=== PATIENT | male | born 1965 | race Caucasian/White ===

== ENCOUNTER 2025-01-31 16:32 | Emergency (ER) | payer OTHER, SELFPAY ==
--- NOTE | ~2025-01-31 | CT_ITS ---
CLINICAL HISTORY: mass? left arm weakness CT head without contrast Comparison: None Findings: No intra-axial mass, midline shift, hydrocephalus, or acute hemorrhage. No significant atrophy-like change or white matter disease. The visualized paranasal sinuses and mastoid air cells are normal. The orbits are within normal limits. There is no acute fracture. IMPRESSION: 1. No acute intracranial findings. This document has been electronically signed by: Kateryna Moreland MD on 01/31/2025 20:59:04
--- NOTE | ~2025-01-31 | XR_ITS ---
CLINICAL HISTORY: L shoulder pain on movement 4 view left shoulder Comparison: None Findings: Normal congruency of the glenohumeral joint. AC joint arthrosis with undersurface spurring No fractures or bony erosions. No greater tuberosity cysts. Normal bone mineralization and soft tissues. No radiopaque foreign body. Normal visualized left chest. Impression: 1. No fracture, subluxations or dislocations left shoulder. 2. AC joint arthrosis with undersurface spurring. This document has been electronically signed by: Marlon Calderon MD on 01/31/2025 18:11:52
--- NOTE | ~2025-01-31 | CT_ITS ---
CLINICAL HISTORY: posterior neck pain radating down left arm CT cervical spine without contrast Comparison: None Findings: Normal vertebral body alignment. Multilevel degenerative disc disease. No significant associated central canal narrowing. No acute fractures or dislocations. No acute findings on limited view of the intracranial contents. No cervical fluid collections or masses. Lung apices are clear. IMPRESSION: No acute findings. This document has been electronically signed by: Kateryna Moreland MD on 01/31/2025 20:57:59
[2025-01-31 16:44] VITALS: BP 150/93; PULSE 106; RESP 20; TEMP 37; O2SAT 94; BMI 20.9
--- NOTE | 2025-01-31 16:45 | ED.GENADULT ---
HPI - General Adult General Chief complaint: Upper Respiratory Symptoms Stated complaint: left arm pain Time Seen by Provider: 01/31/25 18:36 Related Data Previous Rx's ?Medication ?Instructions ?Recorded metformin 500 mg tablet 500 mg PO BID #60 tabs 02/01/25 Allergies Allergy/AdvReac Type Severity Reaction Status Date / Time No Known Allergies Allergy Verified 01/31/25 16:49 PMFSH Social History Social History Smoked in Last 30 Days: No Use of substances other than those prescribed or required for medical reasons: No Advance Directives: No Advance Directives Information Provided: No Physical Exam ED Vital Signs: Vital Signs - 24 hr 01/31/25 16:44 01/31/25 18:00 01/31/25 21:19 Temperature 98.6 F 98.3 F Pulse Rate 106 H 105 H Respiratory Rate 20 20 Blood Pressure 150/93 H 160/102 H Pulse Oximetry 94 96 98 Oxygen Delivery Method Room Air Room Air Room Air 01/31/25 21:19 01/31/25 21:23 01/31/25 21:37 Temperature 98.0 F 97.9 F Pulse Rate 87 84 Respiratory Rate 16 12 Blood Pressure 161/102 H 160/97 H 148/102 H Pulse Oximetry 99 98 Oxygen Delivery Method Room Air Room Air 01/31/25 23:02 02/01/25 01:41 Temperature 98.0 F 98.1 F Pulse Rate 88 72 Respiratory Rate 16 19 Blood Pressure 143/90 H 143/73 H Pulse Oximetry 99 99 Oxygen Delivery Method Room Air Room Air BMI result Body Mass Index 20.9 Course Course Course Narrative: This is a Rapid Medical Examination (RME) performed by Herrera Mondragon PA-C in triage. Full HPI, ROS, assessment and treatment plan per primary provider in the Main ED. 01/31/25 1650 VADIM Lopez Hx: 59 yo male here for eval of atraumatic LUE weakness/pain starting at the left shoulder. Pain radiates down LUE into fingertips. Reports paresthesias. No blunt injury or trauma. No neck pain. PE/vitals: FROM intact to left shoulder, pain noted on active abduction. pain noted to left shoulder on extension against resistance. no midline cervical spinous tenderness. exam nonfocal - NIH 0. Plan: imaging Medications Administered Discontinued Medications Generic Name Dose Route Start Last Admin Trade Name Freq PRN Reason Stop Dose Admin Sodium Chloride 1,000 mls @ 999 mls/hr 01/31/25 20:59 01/31/25 23:10 Ns IV 01/31/25 21:59 Infused .Q1H1M STA Infusion Insulin Human Regular 5 unit 01/31/25 21:01 01/31/25 21:10 Insulin Regular, Human 100 Unit/Ml 10 Ml Vial IVPUSH 01/31/25 21:02 5 unit ONCE ONE Administration Medical Decision Making Lab Data 01/31/25 20:32 01/31/25 20:32 Labs: Lab Results 01/31/25 01/31/25 02/01/25 Range/Units 20:32 23:07 01:24 WBC 10.1 (4.8-10.8) X10*3/uL RBC 5.39 (4.60-5.80) X10*6/uL Hgb 16.4 (14.0-18.0) g/dl Hct 45.2 (42.0-52.0) % MCV 83.9 (80.0-98.0) fL MCH 30.4 (27.0-33.0) pg MCHC 36.3 H (31.0-36.0) g/dl RDW 12.0 (11.0-16.0) % Plt Count 202 (160-400) X10*3/uL MPV 11.3 (9.4-12.4) fL Immature Gran % (Auto) 0.3 (0.0-0.4) % Neut % (Auto) 72.7 (45-73) % Lymph % (Auto) 20.9 (20-40) % [place] % (Auto) 5.0 (2-11) % Eos % (Auto) 0.7 (0-4) % Baso % (Auto) 0.4 (0-2) % Lymph # (Auto) 2.1 (1.2-4.9) X10*3/uL [place] # (Auto) 0.5 (0.1-1.2) X10*3/uL Eos # (Auto) 0.1 (0.0-0.4) X10*3/uL Baso # (Auto) 0.0 (0.0-0.2) X10*3/uL Abs Immat Gran (auto) 0.03 (0.00-0.03) X10*3/uL Absolute Neuts (auto) 7.3 (2.0-8.3) x10*3/uL Absolute Nucleated RBC 0.000 (0.0-0.012) X10*3/uL Nucleated RBC % (auto) 0.0 (0.0-0.2) /100WBC Sodium 136 (135-145) mmol/L Potassium 4.1 (3.3-5.1) mmol/L Chloride 102 (96-108) mmol/L Carbon Dioxide 24 (22-29) mmol/L Anion Gap 14 (12-20) BUN 11 (9-16) mg/dL Creatinine 1.20 (0.5-1.4) mg/dL Estim Creat Clear Calc 61.5 Estimated GFR > 60 POC Glucose 156 H (60-115) mg/dL Random Glucose 394 H* (60-115) mg/dL Calcium 9.3 (8.4-10.2) mg/dL Total Bilirubin 0.2 (0.0-1.0) mg/dL AST 24 (5-37) U/L ALT 42 H (0-40) U/L Alkaline Phosphatase 221 H (39-117) U/L Troponin I High Sens 67.5 H 69.5 H (<3.5-35.0) ng/L Total Protein 8.9 H (6.5-8.0) g/dL Albumin 4.0 (3.5-5.0) g/dL Beta-Hydroxybutyrate 0.20 (0.02-0.27) mmol/L Discharge Plan Discharge Clinical Impression: Diabetes Patient Disposition: Home, Self-Care Instructions: Type 2 Diabetes in Adults: New Diagnosis (ED) Additional Instructions: 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 You have a new diagnosis of diabetes Take metformin twice daily. Call your doctor as soon as possible to schedule follow-up. I recommend decreasing sugar intake and carbohydrate intake Follow-up with your primary doctor, return for new or worsening symptoms, especially if you are having chest pain Prescriptions: New metformin 500 mg tablet 500 mg PO BID Qty: 60 0RF Interventions: ED Discharge Assessment Last Done: 02/01/25 01:41 Discharge Date/Time: 02/01/25 01:43 Print Language: German
[2025-01-31 18:00] VITALS: BP 160/102; PULSE 105; RESP 20; TEMP 36.8; O2SAT 96
--- NOTE | 2025-01-31 20:01 | ECG_ITS ---
Test Reason : SHOULDER PAIN Blood Pressure : */* mmHG Vent. Rate : 96 BPM Atrial Rate : 96 BPM P-R Int : 142 ms QRS Dur : 86 ms QT Int : 340 ms P-R-T Axes : 63 13 57 degrees QTcB Int : 429 ms Normal sinus rhythm Nonspecific T wave abnormality Abnormal ECG No previous ECGs available Referred By: Quentin Valverde Electronically Signed By: OJ PARKER MD
[2025-01-31 20:37] LABS: MANUAL DIFF FLAG NO
[2025-01-31 20:38] LABS: Basophils Percent Auto 0.4 % (0-2); Eosinophils Absolute Auto 0.1 X10*3/uL (0.0-0.4); Eosinophils Percent Auto 0.7 % (0-4); Hematocrit 45.2 % (42.0-52.0); Hemoglobin 16.4 g/dl (14.0-18.0); Imm Gran Abs Auto 0.03 X10*3/uL (0.00-0.03); Imm Gran Pct Auto 0.3 % (0.0-0.4); Lymphocytes Absolute Auto 2.1 X10*3/uL (1.2-4.9); Lymphocytes Percent Auto 20.9 % (20-40); Mean Corpuscular HGB Conc 36.3 g/dl (31.0-36.0); Mean Corpuscular Hemoglobin 30.4 pg (27.0-33.0); Mean Corpuscular Volume 83.9 fL (80.0-98.0); Mean Platelet Volume 11.3 fL (9.4-12.4); Monocytes Absolute Auto 0.5 X10*3/uL (0.1-1.2); Neutrophils Absolute Auto 7.3 x10*3/uL (2.0-8.3); Neutrophils Percent Auto 72.7 % (45-73); Platelet Count 202 X10*3/uL (160-400); Red Blood Count 5.39 X10*6/uL (4.60-5.80); White Blood Count 10.1 X10*3/uL (4.8-10.8)
[2025-01-31 20:58] LABS: Alanine Aminotransferase 42 U/L (0-40); Anion Gap 14 (12-20); Aspartate Amino Transferase 24 U/L (5-37); Bilirubin Total 0.2 mg/dL (0.0-1.0); Blood Urea Nitrogen 11 mg/dL (9-16); Calcium 9.3 mg/dL (8.4-10.2); Carbon Dioxide 24 mmol/L (22-29); Chloride 102 mmol/L (96-108); Creatinine Clr Calc Pharmacy 61.5; Estimated Glomerular Filt Rate > 60; Glucose Random 394 mg/dL (60-115); Potassium 4.1 mmol/L (3.3-5.1); Sodium 136 mmol/L (135-145); Total Protein 8.9 g/dL (6.5-8.0)
[2025-01-31 20:59] LABS: Alkaline Phosphatase 221 U/L (39-117); Troponin-I High Sensitivity 67.5 ng/L (<3.5-35.0)
[2025-01-31] MEDS: Insulin Regular, Human 100 UNIT/ML 10 ML VIAL IVPUSH (21:10)
--- NOTE | 2025-01-31 21:10 | ED.GENADULT ---
HPI - General Adult General Chief complaint: Upper Respiratory Symptoms Stated complaint: left arm pain Time Seen by Provider: 01/31/25 18:36 Source: patient Mode of arrival: ambulatory Limitations: no limitations History of Present Illness ED Provider: Quentin Valverde HPI narrative: 59-year-old male with no past medical history presents to ED for left arm tingling states it is slightly weaker for the past couple of days. Patient denies any headache, slurred speech, facial droop, dizziness, nausea, paralysis. Patient does states some posterior neck pain radiating down patient denies any chest pain or shortness of breath. Patient denies any recent trauma Related Data Previous Rx's ?Medication ?Instructions ?Recorded metformin 500 mg tablet 500 mg PO BID #60 tabs 02/01/25 Allergies Allergy/AdvReac Type Severity Reaction Status Date / Time No Known Allergies Allergy Verified 01/31/25 16:49 Review of Systems Review of Systems: Left shoulder left arm pain Yes all other systems are reviewed and are negative PMFSH Social History Social History Smoked in Last 30 Days: No Use of substances other than those prescribed or required for medical reasons: No Advance Directives: No Advance Directives Information Provided: No Physical Exam ED Vital Signs: Vital Signs - 24 hr 01/31/25 16:44 01/31/25 18:00 01/31/25 21:19 Temperature 98.6 F 98.3 F Pulse Rate 106 H 105 H Respiratory Rate 20 20 Blood Pressure 150/93 H 160/102 H Pulse Oximetry 94 96 98 Oxygen Delivery Method Room Air Room Air Room Air 01/31/25 21:19 01/31/25 21:23 01/31/25 21:37 Temperature 98.0 F 97.9 F Pulse Rate 87 84 Respiratory Rate 16 12 Blood Pressure 161/102 H 160/97 H 148/102 H Pulse Oximetry 99 98 Oxygen Delivery Method Room Air Room Air BMI result Body Mass Index 20.9 Const General: cooperative, healthy appearing, comfortable, no acute distress, well developed, alert, awake and Physically active Orientation/consciousness: patient oriented x3 HENMT Head: Yes normal to inspection, Yes No palpable skull fracture present, Yes normocephalic and Yes atraumatic Eyes General: appearance normal, both eyes and all related structures Neck Neck: Yes normal visual inspection, Yes full ROM, Yes no lymphadenopathy, Yes no meningeal signs, Yes trachea midline, Yes supple, No anterior neck swelling and No tender Chest Chest palpation & inspection: normal inspection of the chest and normal palpation of entire chest wall Resp Effort & Inspection: normal respiratory effort and able to speak in complete sentences Auscultation: clear to auscultation bilaterally Cardio Jugular venous distension: no JVD Heart sounds: S1 normal heart sound present and S2 normal heart sound present GI Inspection: Yes normal to inspection Palpation (GI): Soft to palpation, not firm, nontender, no guarding and not rigid General: Yes no CVA tenderness Back/Spine/Pelvis Back: no CVA tenderness Skin General skin exam: no rashes or lesions noted, elasticity normal and turgor normal Neuro General: patient oriented x3, gait normal, tone normal, moves all extremities, Normal light touch and pain sensation, no meningeal signs, no focal motor deficits, CN's II-XI intact bilaterally and normal sensation to monofilament Extrem General: Yes normal to inspection, Yes full ROM and Yes capillary refill normal Shoulder/upper arm images: 1. Positive for tenderness on palpation. Negative for crepitus, ecchymosis, or deformity. Negative for erythema or rash. Negative for swelling. Rest of extremity normal. Motor/neuro/vascular exam intact. Psych Appearance: grossly normal, well kempt and not disheveled NIH Stroke Scale Internal: Initial- Upon Arrival Level of Consciousness: Alert Level of Consciousness Questions: Answers both questions correctly Level of Consciousness Commands: Performs both tasks correctly Best Gaze: Normal Visual: No visual loss Facial Palsy: Normal Motor Arm (Right): No drift Motor Arm (Left): No drift Motor Leg (Right): No drift Motor Leg (Left): No drift Limb Ataxia: Absent Sensory: Normal Best Language: No aphasia Dysarthia: Normal Extinction and Inattention: No abnormality Score: 0 Medications Administered Discontinued Medications Generic Name Dose Route Start Last Admin Trade Name Freq PRN Reason Stop Dose Admin Sodium Chloride 1,000 mls @ 999 mls/hr 01/31/25 20:59 01/31/25 23:10 Ns IV 01/31/25 21:59 Infused .Q1H1M STA Infusion Insulin Human Regular 5 unit 01/31/25 21:01 01/31/25 21:10 Insulin Regular, Human 100 Unit/Ml 10 Ml Vial IVPUSH 01/31/25 21:02 5 unit ONCE ONE Administration Medical Decision Making Medical Decision Making MDM Narrative: 59-year-old male presents to ED for posterior neck pain radiating down left arm for a couple of weeks with tingling sensation. Physical exam negative for any signs of any neuro deficits. Shunt hyperglycemic. Patient denies any history of diabetes. Beta hydroxy troponin pending 10:48Pm; troponin is positive. Patient goes 394. Patient's blood pressure elevated. Patient states no past medical history. Insulin IV fluids ordered. Repeat troponin ordered. Signed out to VADIM Schmid Differential Diagnosis Differential Diagnoses: The differential diagnosis associated with the presentation includes (shoulder strain, fracture dilscoation) Admission/Observation Consideration of admission/observation: Escalation of care including admission/observation considered Lab Data [facility] Lab Attestation statement: I reviewed the patient's lab results. 01/31/25 20:32 01/31/25 20:32 Labs: Lab Results 01/31/25 01/31/25 02/01/25 Range/Units 20:32 23:07 01:24 WBC 10.1 (4.8-10.8) X10*3/uL RBC 5.39 (4.60-5.80) X10*6/uL Hgb 16.4 (14.0-18.0) g/dl Hct 45.2 (42.0-52.0) % MCV 83.9 (80.0-98.0) fL MCH 30.4 (27.0-33.0) pg MCHC 36.3 H (31.0-36.0) g/dl RDW 12.0 (11.0-16.0) % Plt Count 202 (160-400) X10*3/uL MPV 11.3 (9.4-12.4) fL Immature Gran % (Auto) 0.3 (0.0-0.4) % Neut % (Auto) 72.7 (45-73) % Lymph % (Auto) 20.9 (20-40) % [place] % (Auto) 5.0 (2-11) % Eos % (Auto) 0.7 (0-4) % Baso % (Auto) 0.4 (0-2) % Lymph # (Auto) 2.1 (1.2-4.9) X10*3/uL [place] # (Auto) 0.5 (0.1-1.2) X10*3/uL Eos # (Auto) 0.1 (0.0-0.4) X10*3/uL Baso # (Auto) 0.0 (0.0-0.2) X10*3/uL Abs Immat Gran (auto) 0.03 (0.00-0.03) X10*3/uL Absolute Neuts (auto) 7.3 (2.0-8.3) x10*3/uL Absolute Nucleated RBC 0.000 (0.0-0.012) X10*3/uL Nucleated RBC % (auto) 0.0 (0.0-0.2) /100WBC Sodium 136 (135-145) mmol/L Potassium 4.1 (3.3-5.1) mmol/L Chloride 102 (96-108) mmol/L Carbon Dioxide 24 (22-29) mmol/L Anion Gap 14 (12-20) BUN 11 (9-16) mg/dL Creatinine 1.20 (0.5-1.4) mg/dL Estim Creat Clear Calc 61.5 Estimated GFR > 60 POC Glucose 156 H (60-115) mg/dL Random Glucose 394 H* (60-115) mg/dL Calcium 9.3 (8.4-10.2) mg/dL Total Bilirubin 0.2 (0.0-1.0) mg/dL AST 24 (5-37) U/L ALT 42 H (0-40) U/L Alkaline Phosphatase 221 H (39-117) U/L Troponin I High Sens 67.5 H 69.5 H (<3.5-35.0) ng/L Total Protein 8.9 H (6.5-8.0) g/dL Albumin 4.0 (3.5-5.0) g/dL Beta-Hydroxybutyrate 0.20 (0.02-0.27) mmol/L Independent Interpretation I performed an independent interpretation of an: EKG (Normal sinus rhythm) Independent Historian Clinical information obtained from an independent historian. History obtained from or confirmed by: Other (patient) Attestation Attending Attestation: I was personally present and available for consultation in the ED. I have reviewed everything on the chart that is available and agree with the documentation provided by the DANIEL including discussion about the assessment, treatment plan and discussion. Based on medical record the care appears appropriate. 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 You have a new diagnosis of diabetes Take metformin twice daily. Call your doctor as soon as possible to schedule follow-up. I recommend decreasing sugar intake and carbohydrate intake Follow-up with your primary doctor, return for new or worsening symptoms, especially if you are having chest pain Prescriptions: New metformin 500 mg tablet 500 mg PO BID Qty: 60 0RF Interventions: ED Discharge Assessment Last Done: 02/01/25 01:41 Discharge Date/Time: 02/01/25 01:43 Print Language: Canadian
[2025-01-31] MEDS: 0.9 % Sodium Chloride 1,000 ML 999 ML IV (21:12)
[2025-01-31 21:19] VITALS: BP 161/102; PULSE 87; RESP 16; TEMP 36.7; O2SAT 98; O2SAT 99
[2025-01-31 21:23] VITALS: BP 160/97
[2025-01-31 21:37] VITALS: BP 148/102; PULSE 84; RESP 12; TEMP 36.6; O2SAT 98
[2025-01-31 23:02] VITALS: BP 143/90; PULSE 88; RESP 16; TEMP 36.7; O2SAT 99
[2025-01-31 23:31] LABS: Troponin-I High Sensitivity 69.5 ng/L (<3.5-35.0)
[2025-02-01 01:28] LABS: Glucose, Whole Blood 156 mg/dL (60-115)
[2025-02-01 01:41] VITALS: BP 143/73; PULSE 72; RESP 19; TEMP 36.7; O2SAT 99
== END 2025-02-01 01:43 | disposition home or self-care (01) ==
PROVIDERS: Physician Assistant; Emergency Provider Emergency Medicine
DX: M79.602 Pain in left arm (principal); R51.9 Headache, unspecified; M54.2 Cervicalgia; R94.31 Abnormal electrocardiogram [ECG] [EKG]; E11.9 Type 2 diabetes mellitus without complications; Z79.899 Other long term (current) drug therapy
CPT/HCPCS: 36415; 70450; 72125; 73030; 80053; 82010; 82947; 84484; 85025; 93005; 96361; 96374; 99284; 99285

== ENCOUNTER → 2025-01-31 16:49 | Outpatient (BNV) | payer OTHER, SELFPAY | PROVIDERS: Emergency Provider Emergency Medicine; Visit Provider Radiology Diagnostic Radiology | DX: M54.2 Cervicalgia (principal); R22.0 Localized swelling, mass and lump, head; M19.012 Primary osteoarthritis, left shoulder | CPT/HCPCS: 70450; 72125; 73030 ==

== ENCOUNTER → 2025-01-31 20:01 | Outpatient (BNV) | payer OTHER, SELFPAY | PROVIDERS: Emergency Provider Emergency Medicine; Visit Provider Internal Medicine Cardiovascular Disease | DX: R94.31 Abnormal electrocardiogram [ECG] [EKG] (principal); M25.519 Pain in unspecified shoulder | CPT/HCPCS: 93010 ==

== ENCOUNTER 2025-03-07 18:07 | Emergency (ER) | payer OTHER, SELFPAY ==
[2025-03-07 18:18] VITALS: BP 162/95; PULSE 102; RESP 18; TEMP 36.6; O2SAT 97; BMI 27.1
--- NOTE | 2025-03-07 18:21 | ED_ITS ---
HPI - General Adult General Chief complaint: General Medical Stated complaint: High Blood Sugar Time Seen by Provider: 03/07/25 18:38 History of Present Illness HPI narrative: Patient is a 60-year-old male ran out of his metformin noted his sugar to be running high came to the ER there is no chest pain has no shortness of breath there is no nausea no vomiting. No focal weakness. Patient is from home. Related Data Previous Rx's ?Medication ?Instructions ?Recorded metformin 500 mg tablet 500 mg PO BID #60 tabs 02/01/25 metformin 500 mg tablet 500 mg PO BID #60 tabs 03/07/25 Allergies Allergy/AdvReac Type Severity Reaction Status Date / Time No Known Allergies Allergy Verified 03/07/25 18:22 Review of Systems 2 Review of Systems: Positive generalized malaise Yes all other systems are reviewed and are negative [facility] Past Medical History Attestation statement: The following information was validated with the patient. Social History Social History Smoked in Last 30 Days: No Use of substances other than those prescribed or required for medical reasons: No Advance Directives: No Advance Directives Information Provided: No Physical Exam ED Vital Signs: Vital Signs - 24 hr 03/07/25 18:18 03/07/25 19:45 Temperature 98 F 98.5 F Pulse Rate 102 H 96 Respiratory Rate 18 16 Blood Pressure 162/95 H 162/91 H Pulse Oximetry 97 97 Oxygen Delivery Method Room Air Room Air BMI result Body Mass Index 27.1 Appearance: Alert. Oriented X3. No acute distress. Eyes: Pupils equal, round and reactive to light. ENT: Pharynx normal. Neck: Normal inspection. Neck supple. No lymph nodes noted. No crepitus CVS: Normal heart rate and rhythm. Pulses normal. Normal S1 and S2 Respiratory: No respiratory distress. Breath sounds normal. No Wheezing. No rales Abdomen: Soft and nontender. No rigidity. No distention. good BS x4 Skin: Skin warm and dry. Normal skin color. Normal skin turgor. Extremities: No lower extremity edema. Neurovascular intact to all extremities. No Lacerations. No Rash Neuro: Oriented X 3. No motor deficit. No sensory deficit. Moving all extermities. No slurred speech Course Course Course Narrative: RME, this is a rapid medical exam performed by Binu Bradley please refer to primary provider for complete H&P- 60-year-old male with past medical history significant for type 2 diabetes presents for evaluation of elevated blood sugar. He did not check his sugar today as he does not have a machine, however he reports he feels as though his sugar is high. He has been out of his metformin for the last week. He takes 500 mg b.i.d.. Plan for labs, UA, VBG and beta hydroxybutyrate Medical Decision Making Medical Decision Making [facility] Narrative: Well-appearing no acute distress. Patient lost to the care system. Did not follow-up. One month ago receive a prescription for metformin. Patient is out of meds again. Retained patient's labs. His pH is 7.51 there is no evidence for diabetic ketoacidosis in the setting of bicarb being 25 anion gap being normal patient's glucose was 290 on recheck. Will give patient back his metformin. Will have patient closely follow-up on an outpatient basis. Explained to patient the need for close follow-up with his primary not in the ED patient states understanding his urine is negative his blood pressure is slightly elevated will also need to be followed up. Currently in stable condition will discharge home Differential Diagnosis Differential Diagnoses: The differential diagnosis associated with the presentation includes Hyperglycemia Admission/Observation Consideration of admission/observation: Escalation of care including admission/observation considered Lab Data [facility] Lab Attestation statement: I reviewed the patient's lab results. 03/07/25 18:56 03/07/25 18:56 Labs: Lab Results 03/07/25 03/07/25 03/07/25 Range/Units 18:56 19:03 19:05 WBC 9.7 (4.8-10.8) X10*3/uL RBC 5.13 (4.60-5.80) X10*6/uL Hgb 15.4 (14.0-18.0) g/dl Hct 43.4 (42.0-52.0) % MCV 84.6 (80.0-98.0) fL MCH 30.0 (27.0-33.0) pg MCHC 35.5 (31.0-36.0) g/dl RDW 12.4 (11.0-16.0) % Plt Count 212 (160-400) X10*3/uL MPV 10.7 (9.4-12.4) fL Immature Gran % (Auto) 0.4 (0.0-0.4) % Neut % (Auto) 72.2 (45-73) % Lymph % (Auto) 20.5 (20-40) % [place] % (Auto) 5.7 (2-11) % Eos % (Auto) 0.8 (0-4) % Baso % (Auto) 0.4 (0-2) % Lymph # (Auto) 2.0 (1.2-4.9) X10*3/uL [place] # (Auto) 0.6 (0.1-1.2) X10*3/uL Eos # (Auto) 0.1 (0.0-0.4) X10*3/uL Baso # (Auto) 0.0 (0.0-0.2) X10*3/uL Abs Immat Gran (auto) 0.04 H (0.00-0.03) X10*3/uL Absolute Neuts (auto) 7.0 (2.0-8.3) x10*3/uL Absolute Nucleated RBC 0.000 (0.0-0.012) X10*3/uL Nucleated RBC % (auto) 0.0 (0.0-0.2) /100WBC VBG pH 7.51 H (7.32-7.43) VBG pCO2 31 mmHg VBG pO2 67 mmHg VBG HCO3 25 (22-26) mmol/L VBG O2 Saturation 94.0 % VBG Base Excess 3.1 mmol/L Sodium 141 (135-145) mmol/L Potassium 3.8 (3.3-5.1) mmol/L Chloride 103 (96-108) mmol/L Carbon Dioxide 25 (22-29) mmol/L Anion Gap 17 (12-20) BUN 10 (9-16) mg/dL Creatinine 0.94 (0.5-1.4) mg/dL Estim Creat Clear Calc 91.2 Estimated GFR > 60 POC Glucose (60-115) mg/dL Random Glucose 304 H (60-115) mg/dL Calcium 10.2 D (8.4-10.2) mg/dL Total Bilirubin 0.2 (0.0-1.0) mg/dL AST 29 (5-37) U/L ALT 42 H (0-40) U/L Alkaline Phosphatase 172 H (39-117) U/L Total Protein 7.9 (6.5-8.0) g/dL Albumin 4.3 (3.5-5.0) g/dL Beta-Hydroxybutyrate 0.14 (0.02-0.27) mmol/L Urine Color Yellow Urine Appearance Clear Urine pH 6.0 (5.0-9.0) Ur Specific [place] 1.025 (1.005-1.025) Urine Protein 30 (1+) H (Neg-Trace) mg/dL Urine Glucose (UA) >=1000 H (Negative) mg/dL Urine Ketones Trace (Negative) mg/dL Urine Blood Negative (Negative) Urine Nitrite Negative (Negative) Ur Leukocyte Esterase Negative (Negative) Urine RBC 0-2 (0-2) /HPF Urine WBC 0-5 (0-5) /HPF Ur Squamous Epith Cells 0-2 (0-2) /HPF Urine Bacteria None Seen (None Seen) Hyaline Casts 0-2 (0-2) /LPF 03/07/25 Range/Units 21:32 WBC (4.8-10.8) X10*3/uL RBC (4.60-5.80) X10*6/uL Hgb (14.0-18.0) g/dl Hct (42.0-52.0) % MCV (80.0-98.0) fL MCH (27.0-33.0) pg MCHC (31.0-36.0) g/dl RDW (11.0-16.0) % Plt Count (160-400) X10*3/uL MPV (9.4-12.4) fL Immature Gran % (Auto) (0.0-0.4) % Neut % (Auto) (45-73) % Lymph % (Auto) (20-40) % [place] % (Auto) (2-11) % Eos % (Auto) (0-4) % Baso % (Auto) (0-2) % Lymph # (Auto) (1.2-4.9) X10*3/uL [place] # (Auto) (0.1-1.2) X10*3/uL Eos # (Auto) (0.0-0.4) X10*3/uL Baso # (Auto) (0.0-0.2) X10*3/uL Abs Immat Gran (auto) (0.00-0.03) X10*3/uL Absolute Neuts (auto) (2.0-8.3) x10*3/uL Absolute Nucleated RBC (0.0-0.012) X10*3/uL Nucleated RBC % (auto) (0.0-0.2) /100WBC VBG pH (7.32-7.43) VBG pCO2 mmHg VBG pO2 mmHg VBG HCO3 (22-26) mmol/L VBG O2 Saturation % VBG Base Excess mmol/L Sodium (135-145) mmol/L Potassium (3.3-5.1) mmol/L Chloride (96-108) mmol/L Carbon Dioxide (22-29) mmol/L Anion Gap (12-20) BUN (9-16) mg/dL Creatinine (0.5-1.4) mg/dL Estim Creat Clear Calc Estimated GFR POC Glucose 290 H (60-115) mg/dL Random Glucose (60-115) mg/dL Calcium (8.4-10.2) mg/dL Total Bilirubin (0.0-1.0) mg/dL AST (5-37) U/L ALT (0-40) U/L Alkaline Phosphatase (39-117) U/L Total Protein (6.5-8.0) g/dL Albumin (3.5-5.0) g/dL Beta-Hydroxybutyrate (0.02-0.27) mmol/L Urine Color Urine Appearance Urine pH (5.0-9.0) Ur Specific [place] (1.005-1.025) Urine Protein (Neg-Trace) mg/dL Urine Glucose (UA) (Negative) mg/dL Urine Ketones (Negative) mg/dL Urine Blood (Negative) Urine Nitrite (Negative) Ur Leukocyte Esterase (Negative) Urine RBC (0-2) /HPF Urine WBC (0-5) /HPF Ur Squamous Epith Cells (0-2) /HPF Urine Bacteria (None Seen) Hyaline Casts (0-2) /LPF Chronic Conditions Patient?s care impacted by: Diabetes Social Determinants Patient?s care significantly limited by Social Determinants of Health including: Low income, Problems related to primary support group and Unemployment Discharge Plan Discharge Clinical Impression: Acute hyperglycemia, Diabetes Patient Disposition: Home, Self-Care Instructions: Diabetic Hyperglycemia (ED), Diabetes and Nutrition (ED) Additional Instructions: Please follow-up with your primary physician. Please take your metformin. Your sugar was out of control again. Please be careful. Please take your medicine. Prescriptions: New metformin 500 mg tablet 500 mg PO BID Qty: 60 0RF No Action metformin 500 mg tablet 500 mg PO BID Qty: 60 0RF Referrals: [facility] [Provider Group] - 03/11/25 Print Language: Chinese
[2025-03-07 19:03] LABS: MANUAL DIFF FLAG NO
[2025-03-07 19:05] LABS: Basophils Percent Auto 0.4 % (0-2); Eosinophils Absolute Auto 0.1 X10*3/uL (0.0-0.4); Eosinophils Percent Auto 0.8 % (0-4); Hematocrit 43.4 % (42.0-52.0); Hemoglobin 15.4 g/dl (14.0-18.0); Imm Gran Abs Auto 0.04 X10*3/uL (0.00-0.03); Imm Gran Pct Auto 0.4 % (0.0-0.4); Lymphocytes Percent Auto 20.5 % (20-40); Mean Corpuscular HGB Conc 35.5 g/dl (31.0-36.0); Mean Corpuscular Volume 84.6 fL (80.0-98.0); Mean Platelet Volume 10.7 fL (9.4-12.4); Monocytes Absolute Auto 0.6 X10*3/uL (0.1-1.2); Monocytes Percent Auto 5.7 % (2-11); Neutrophils Percent Auto 72.2 % (45-73); Platelet Count 212 X10*3/uL (160-400); Red Blood Count 5.13 X10*6/uL (4.60-5.80); Red Cell Distribution Width 12.4 % (11.0-16.0); White Blood Count 9.7 X10*3/uL (4.8-10.8)
[2025-03-07 19:07] LABS: VBG Base Excess 3.1 mmol/L; VBG HCO3 25 mmol/L (22-26); VBG pCO2 31 mmHg; VBG pH 7.51 (7.32-7.43); VBG pO2 67 mmHg
[2025-03-07 19:07] LABS: Venous Blood Gas Refer to POC result
[2025-03-07 19:10] LABS: Appearance Urine Clear; Color Urine Yellow; Glucose Urine UA >=1000 mg/dL (Negative); Leukocyte Esterase Urine Negative (Negative); Nitrite Urine Negative (Negative); Specific Gravity - Urine 1.025 (1.005-1.025); UMIC TRIGGER UACC YES; Urine Blood Negative (Negative); Urine Ketones Trace mg/dL (Negative); Urine Protein 30 (1+) mg/dL (Neg-Trace)
[2025-03-07 19:33] LABS: Alanine Aminotransferase 42 U/L (0-40); Albumin Level 4.3 g/dL (3.5-5.0); Alkaline Phosphatase 172 U/L (39-117); Anion Gap 17 (12-20); Aspartate Amino Transferase 29 U/L (5-37); Bilirubin Total 0.2 mg/dL (0.0-1.0); Blood Urea Nitrogen 10 mg/dL (9-16); Calcium 10.2 mg/dL (8.4-10.2); Carbon Dioxide 25 mmol/L (22-29); Chloride 103 mmol/L (96-108); Creatinine Clr Calc Pharmacy 91.2; Estimated Glomerular Filt Rate > 60; Glucose Random 304 mg/dL (60-115); Potassium 3.8 mmol/L (3.3-5.1); Sodium 141 mmol/L (135-145); Total Protein 7.9 g/dL (6.5-8.0)
[2025-03-07 19:36] LABS: Bacteria Urine None Seen (None Seen); Hyaline Casts Urine 0-2 /LPF (0-2); RBC Urine 0-2 /HPF (0-2); Squamous Epithelial Cell Urine 0-2 /HPF (0-2); WBC Urine 0-5 /HPF (0-5)
[2025-03-07 19:45] VITALS: BP 162/91; PULSE 96; RESP 16; TEMP 36.9; O2SAT 97
[2025-03-07 20:09] LABS: Beta-Hydroxybutyrate 0.14 mmol/L (0.02-0.27)
[2025-03-07 21:39] LABS: Glucose, Whole Blood 290 mg/dL (60-115)
[2025-03-07 22:47] VITALS: BP 162/91; PULSE 96; RESP 16; TEMP 36.9; O2SAT 97
== END 2025-03-07 22:47 | disposition home or self-care (01) ==
PROVIDERS: Physician Assistant; Emergency Provider Emergency Medicine Emergency Medical Services
DX: E11.65 Type 2 diabetes mellitus with hyperglycemia (principal); Z79.899 Other long term (current) drug therapy; Z79.84 Long term (current) use of oral hypoglycemic drugs
CPT/HCPCS: 36415; 80053; 81001; 82010; 82803; 82947; 85025; 99283; 99284

== ENCOUNTER 2025-04-17 16:02 | Emergency (ER) | payer OTHER, SELFPAY ==
[2025-04-17 16:09] VITALS: BP 140/98; PULSE 87; RESP 16; TEMP 36.7; O2SAT 98; BMI 27.2
--- NOTE | 2025-04-17 16:14 | ECG_ITS ---
Test Reason : dizzy Blood Pressure : */* mmHG Vent. Rate : 88 BPM Atrial Rate : 88 BPM P-R Int : 140 ms QRS Dur : 90 ms QT Int : 356 ms P-R-T Axes : 44 -3 47 degrees QTcB Int : 430 ms Normal sinus rhythm Possible Left atrial enlargement Left ventricular hypertrophy ( Sokolow-Delong , Matias product ) Nonspecific T wave abnormality Abnormal ECG When compared with ECG of 31-Jan-2025 20:20, No significant change was found Referred By: Quentin Valverde Electronically Signed By: OJ PARKER MD
--- NOTE | 2025-04-17 16:14 | ED.GENADULT ---
HPI - General Adult General Chief complaint: Recheck/Abnormal Lab/Rx Stated complaint: increased blood sugar; increased bp Time Seen by Provider: 04/17/25 17:03 Source: patient Mode of arrival: ambulatory Limitations: no limitations History of Present Illness ED Provider: DR. Garrison HPI narrative: 60-year-old male history of T2 DM on metformin 500 mg b.i.d. patient ran out of his medication for the last 3 days and his blood sugar has been elevated, patient has no chest pain, no shortness of breath, no fever, no chills. Patient has no complaint today only asking for prescription for metformin. Patient also ran out of his blood pressure medication that he has not taking for over 2 months. Patient's brother today and patient is going through emotional distress and grieving, still denies chest pain or shortness of breath. Related Data Previous Rx's ?Medication ?Instructions ?Recorded metformin 500 mg tablet 500 mg PO BID #60 tabs 02/01/25 metformin 500 mg tablet 500 mg PO BID #60 tabs 03/07/25 amlodipine 5 mg tablet 5 mg PO DAILY #30 tabs 04/17/25 metformin 500 mg tablet 500 mg PO BID #60 tabs 04/17/25 Allergies Allergy/AdvReac Type Severity Reaction Status Date / Time No Known Allergies Allergy Verified 04/17/25 16:11 Review of Systems Review of Systems: All other systems are reviewed and are negative Constitutional: Reports as per HPI and Reports no additional constitutional complaints Eyes: Reports as per HPI and Reports no additional eye complaints Reports system reviewed and no additional complaints, except as documented Cardiovascular: Reports as per HPI and Reports no additional cardiovascular complaints Respiratory: Reports as per HPI and Reports no additional respiratory complaints Gastrointestinal: Reports as per HPI and Reports no additional gastrointestinal complaints Genitourinary: Reports no additional female genitourinary complaints Musculoskeletal: Reports no additional musculoskeletal complaints Skin/Breast: Reports system reviewed and no additional complaints, except as docu Psychiatric: Reports no additional psychiatric complaints Endocrine: Reports no additional endocrine complaints Hematologic/Lymphatic: Reports no additional hematologic/lymphatic complaints Allergic/Immunologic: Reports no additional allergic/immunologic complaints Reports system reviewed and no additional complaints, except as documented and Reports Abnormal speech present PMFSH Social History Social History Unable to assess alcohol history related to: Unknown Smoked in Last 30 Days: No Use of substances other than those prescribed or required for medical reasons: Unknown Advance Directives: No Advance Directives Information Provided: No Do you have a plan to hurt others: No Plan Physical Exam ED Vital Signs: Vital Signs - 24 hr 04/17/25 16:09 04/17/25 18:00 04/17/25 20:08 Temperature 98.0 F 97.8 F 99.2 F Pulse Rate 87 77 74 Respiratory Rate 16 16 20 Blood Pressure 140/98 H 170/99 H 166/114 H Pulse Oximetry 98 99 100 Oxygen Delivery Method Room Air Room Air Room Air 04/17/25 20:09 04/17/25 20:16 Temperature 99.2 F Pulse Rate 74 Respiratory Rate 20 Blood Pressure 166/114 H 166/114 H Pulse Oximetry 100 Oxygen Delivery Method Room Air BMI result Body Mass Index 27.2 Vital signs have been reviewed and appear to be correct. Blood pressure elevated. Heart rate normal. Respiratory rate normal. Temperature normal. Oxygen saturation normal. Appearance: Alert. Oriented X3. No acute distress. Head: Normal external exam. Normocephalic. Atraumatic. No [place] signs noted. No raccoon eyes noted Eyes: PERRLA. EOMI. Conjunctiva and sclera normal. Eyelids normal. ENT: TM's Normal. Pharynx normal. Uvula midline. Moist mucous membranes. No trismus noted. No drooling noted. No muffled voice noted. Neck: Normal inspection. Neck supple. FROM. No adenopathy. Thyroid Normal. No meningeal signs. No neck mass noted. CVS: Normal heart rate and rhythm. Heart sound normal. No murmurs noted. Pulses normal throughout. Respiratory: No respiratory distress. Painless inspiration. Breath sounds normal. No wheezes/rales/rhonchi noted. Chest nontender. No accessory muscle usage noted or decreased air movement noted. Abdomen: Soft and nontender. Bowel sounds normal in all 4 quadrants. No distention noted. No organomegaly noted. No visible injury noted. Back: No CVA tenderness. Full range of motion noted. Skin: Skin warm and dry. Normal skin color. Normal skin turgor. No rashes/lesions/lacerations noted. Extremities: No lower extremity edema. Extremities exhibit normal range of motion. Extremities nontender. Neuro: Oriented X 3. Cranial nerve exam: II-XII are grossly intact No motor deficit. No sensory deficit. Reflexes normal. Course Course Course Narrative: RME; 60-year-old male presents to ED for 4 elevated blood sugar. Patient states dizziness and headache after not having metformin for the past 2 days. Patient denies chest pain. NIH score is 0 Reevaluation(s) Reevaluation #1: 60-year-old male with history of diabetes and hypertension patient is not compliant with his medication, ran out of his medication for 2 months here today for refill of metformin and his blood pressure medication. Patient refuse IV hydration in the emergency department. Patient with no chest pain EKG is concern of LVH, elevated troponin with no delta changed, patient adamantly refused to be further evaluated in the emergency room for his elevated troponin, patient fully understand that he can have a silent myocardial infarction with this high troponin, patient is AAO x3, have the capacity to make a decision, no SI, patient wanted to sign AMA, risk leaving against medical advice was discussed with the patient including a massive heart attack that may lead to stroke and/or patient fully understood my instruction and still wanted to leave. Will refill prescription for amlodipine and metformin until he sees his primary doctor patient was given instruction to return if his symptoms is worsening. Time: 19:39 Medications Administered Discontinued Medications Generic Name Dose Route Start Last Admin Trade Name Kristopher PRN Reason Stop Dose Admin Amlodipine Besylate 5 mg 04/17/25 19:39 04/17/25 20:09 Amlodipine Besylate 5 Mg Tablet PO 04/17/25 19:40 5 mg ONCE ONE Administration Protocol Sodium Chloride 1,000 mls @ 999 mls/hr 04/17/25 17:07 04/17/25 18:30 Ns IV 04/17/25 18:07 Not Given .Q1H1M ONE Metformin HCl 1,000 mg 04/17/25 17:07 04/17/25 18:30 Metformin Hcl 1,000 Mg Tablet PO 04/17/25 17:08 1,000 mg ONCE ONE Administration Medical Decision Making Differential Diagnosis Differential Diagnoses: The differential diagnosis associated with the presentation includes (DKA, hyperglycemia, hypertensive emergency, ACS, electrolyte derangement, severe anemia.) Admission/Observation Consideration of admission/observation: Escalation of care including admission/observation considered Lab Data MDM Lab Attestation statement: I reviewed the patient's lab results. 04/17/25 16:32 04/17/25 16:32 Labs: Lab Results 04/17/25 04/17/25 Range/Units 16:32 18:47 WBC 9.6 (4.8-10.8) X10*3/uL RBC 5.23 (4.60-5.80) X10*6/uL Hgb 15.4 (14.0-18.0) g/dl Hct 44.1 (42.0-52.0) % MCV 84.3 (80.0-98.0) fL MCH 29.4 (27.0-33.0) pg MCHC 34.9 (31.0-36.0) g/dl RDW 12.9 (11.0-16.0) % Plt Count 221 (160-400) X10*3/uL MPV 10.3 (9.4-12.4) fL Immature Gran % (Auto) 0.4 (0.0-0.4) % Neut % (Auto) 65.7 (45-73) % Lymph % (Auto) 25.8 (20-40) % Lyman % (Auto) 6.7 (2-11) % Eos % (Auto) 1.0 (0-4) % Baso % (Auto) 0.4 (0-2) % Lymph # (Auto) 2.5 (1.2-4.9) X10*3/uL Lyman # (Auto) 0.6 (0.1-1.2) X10*3/uL Eos # (Auto) 0.1 (0.0-0.4) X10*3/uL Baso # (Auto) 0.0 (0.0-0.2) X10*3/uL Abs Immat Gran (auto) 0.04 H (0.00-0.03) X10*3/uL Absolute Neuts (auto) 6.3 (2.0-8.3) x10*3/uL Absolute Nucleated RBC 0.000 (0.0-0.012) X10*3/uL Nucleated RBC % (auto) 0.0 (0.0-0.2) /100WBC APTT 31.7 (26.0-36.8) SEC Sodium 140 (135-145) mmol/L Potassium 3.9 (3.3-5.1) mmol/L Chloride 105 (96-108) mmol/L Carbon Dioxide 24 (22-29) mmol/L Anion Gap 15 (12-20) BUN 10 (9-16) mg/dL Creatinine 1.01 (0.5-1.4) mg/dL Estim Creat Clear Calc 84.9 Estimated GFR > 60 Random Glucose 243 H (60-115) mg/dL Calcium 9.0 D (8.4-10.2) mg/dL Total Bilirubin 0.3 (0.0-1.0) mg/dL AST 27 (5-37) U/L ALT 30 (0-40) U/L Alkaline Phosphatase 126 H (39-117) U/L Troponin I High Sens 131.6 H* D 148.5 H* (<3.5-35.0) ng/L Total Protein 7.5 (6.5-8.0) g/dL Albumin 4.5 (3.5-5.0) g/dL Beta-Hydroxybutyrate 0.12 (0.02-0.27) mmol/L Urine Color Yellow Urine Appearance Clear Urine pH 5.5 (5.0-9.0) Ur Specific [place] >= 1.030 H (1.005-1.025) Urine Protein 30 (1+) H (Neg-Trace) mg/dL Urine Glucose (UA) >=1000 H (Negative) mg/dL Urine Ketones 15 (Negative) mg/dL Urine Blood Negative (Negative) Urine Nitrite Negative (Negative) Ur Leukocyte Esterase Negative (Negative) Urine RBC 0-2 (0-2) /HPF Urine WBC 0-5 (0-5) /HPF Ur Squamous Epith Cells 0-2 (0-2) /HPF Urine Bacteria None Seen (None Seen) Hyaline Casts 0-2 (0-2) /LPF Discharge Plan Discharge Clinical Impression: Elevated troponin, Benign essential hypertension, Hyperglycemia due to diabetes mellitus Patient Disposition: Left Against Medical Advice Instructions: Hypertension (ED), Type 2 Diabetes Management for Adults (ED) Additional Instructions: Seek immediate medical attention if you have chest pain or shortness of breath. Follow-up with your primary doctor for prescription refill. Follow-up with the application processor as we discussed. Prescriptions: New metformin 500 mg tablet 500 mg PO BID Qty: 60 0RF amlodipine 5 mg tablet 5 mg PO DAILY Qty: 30 0RF No Action metformin 500 mg tablet 500 mg PO BID Qty: 60 0RF metformin 500 mg tablet 500 mg PO BID Qty: 60 0RF Referrals: Brad White MD [Physician, Cardiology] Stand Alone Forms: Against Medical Advice Interventions: ED Discharge Assessment Last Done: 04/17/25 20:16 Discharge Date/Time: 04/17/25 20:16 Print Language: Bulgarian
[2025-04-17 16:40] LABS: MANUAL DIFF FLAG NO
[2025-04-17 16:42] LABS: Appearance Urine Clear; Glucose Urine UA >=1000 mg/dL (Negative); Hematocrit 44.1 % (42.0-52.0); Hemoglobin 15.4 g/dl (14.0-18.0); Imm Gran Abs Auto 0.04 X10*3/uL (0.00-0.03); Imm Gran Pct Auto 0.4 % (0.0-0.4); Lymphocytes Absolute Auto 2.5 X10*3/uL (1.2-4.9); Mean Corpuscular HGB Conc 34.9 g/dl (31.0-36.0); Mean Corpuscular Hemoglobin 29.4 pg (27.0-33.0); Mean Corpuscular Volume 84.3 fL (80.0-98.0); NRBC Abs Auto 0.000 X10*3/uL (0.0-0.012); NRBC Pct Auto 0.0 /100WBC (0.0-0.2); PH 5.5 (5.0-9.0); Platelet Count 221 X10*3/uL (160-400); Red Blood Count 5.23 X10*6/uL (4.60-5.80); Specific Gravity - Urine >= 1.030 (1.005-1.025); UMIC TRIGGER UACC YES; White Blood Count 9.6 X10*3/uL (4.8-10.8)
[2025-04-17 16:51] LABS: Partial Thromboplastin Time 31.7 SEC (26.0-36.8)
[2025-04-17 16:55] LABS: Alanine Aminotransferase 30 U/L (0-40); Albumin Level 4.5 g/dL (3.5-5.0); Alkaline Phosphatase 126 U/L (39-117); Anion Gap 15 (12-20); Aspartate Amino Transferase 27 U/L (5-37); Blood Urea Nitrogen 10 mg/dL (9-16); Calcium 9.0 mg/dL (8.4-10.2); Carbon Dioxide 24 mmol/L (22-29); Chloride 105 mmol/L (96-108); Creatinine Clr Calc Pharmacy 84.9; Estimated Glomerular Filt Rate > 60; Potassium 3.9 mmol/L (3.3-5.1); Sodium 140 mmol/L (135-145); Total Protein 7.5 g/dL (6.5-8.0)
[2025-04-17 17:13] LABS: Troponin-I High Sensitivity 131.6 ng/L (<3.5-35.0)
--- NOTE | 2025-04-17 17:15 | ECG_ITS ---
Test Reason : ELEVATED TROP Blood Pressure : */* mmHG Vent. Rate : 73 BPM Atrial Rate : 73 BPM P-R Int : 134 ms QRS Dur : 90 ms QT Int : 366 ms P-R-T Axes : 56 11 76 degrees QTcB Int : 403 ms Normal sinus rhythm Moderate voltage criteria for LVH, may be normal variant ( Sokolow-Delong , Matias product ) Nonspecific T wave abnormality Abnormal ECG When compared with ECG of 17-Apr-2025 16:21, No significant change was found Referred By: Kar Garrison Electronically Signed By: OJ PAKRER MD
[2025-04-17 18:00] VITALS: BP 170/99; PULSE 77; RESP 16; TEMP 36.6; O2SAT 99
--- NOTE | 2025-04-17 18:32 | PC.NURSE ---
pt refusing IV and fluids. pt stated that his brother today and he wants to leave. informed MD Garrison of pts refusal. pt agreeable to getting repeat troponin drawn then states he wants to leave even if that means leaving AMA. and RN aware.
--- NOTE | 2025-04-17 18:58 | MHC.EDTECH ---
Patient inc stool therefore patient changed and repositioned
[2025-04-17 19:15] LABS: Troponin-I High Sensitivity 148.5 ng/L (<3.5-35.0)
[2025-04-17 20:08] VITALS: BP 166/114; PULSE 74; RESP 20; TEMP 37.3; O2SAT 100
[2025-04-17 20:09] VITALS: BP 166/114
[2025-04-17 20:16] VITALS: BP 166/114; PULSE 74; RESP 20; TEMP 37.3; O2SAT 100
== END 2025-04-17 20:16 | disposition left against medical advice (07) ==
PROVIDERS: Physician Assistant; Emergency Provider Emergency Medicine
DX: E11.65 Type 2 diabetes mellitus with hyperglycemia (principal); I10 Essential (primary) hypertension; R79.89 Other specified abnormal findings of blood chemistry; R94.31 Abnormal electrocardiogram [ECG] [EKG]; R51.9 Headache, unspecified; Z91.148 Patient's other noncompliance with medication regimen for other reason; Z79.899 Other long term (current) drug therapy
CPT/HCPCS: 36415; 80053; 81001; 82010; 84484; 85025; 85730; 93005; 99283; 99285

== ENCOUNTER → 2025-04-17 16:14 | Outpatient (BNV) | payer OTHER, SELFPAY | PROVIDERS: Emergency Provider Emergency Medicine; Visit Provider Internal Medicine Cardiovascular Disease | DX: I51.7 Cardiomegaly (principal); R94.31 Abnormal electrocardiogram [ECG] [EKG]; R79.89 Other specified abnormal findings of blood chemistry | CPT/HCPCS: 93010 ==

== ENCOUNTER 2025-08-27 15:13 | Observation (INO) | payer OTHER, SELFPAY ==
--- NOTE | 2025-08-27 15:14 | ECG_ITS ---
Test Reason : cp Blood Pressure : */* mmHG Vent. Rate : 106 BPM Atrial Rate : 106 BPM P-R Int : 138 ms QRS Dur : 86 ms QT Int : 324 ms P-R-T Axes : 57 9 72 degrees QTcB Int : 430 ms Sinus tachycardia Possible Left atrial enlargement Left ventricular hypertrophy ( Sokolow-Delong , Matias product ) Abnormal ECG When compared with ECG of 17-Apr-2025 17:31, Nonspecific T wave abnormality, improved in Lateral leads Referred By: Alba Mondragon Electronically Signed By: OJ PARKER MD
[2025-08-27 15:20] VITALS: BP 154/96; PULSE 110; RESP 18; O2SAT 96; BMI 26.5
--- NOTE | 2025-08-27 15:20 | ED_ITS ---
HPI - General Adult General Chief complaint: General Medical Stated complaint: CP, passed out Time Seen by Provider: 08/27/25 15:34 History of Present Illness ED Provider: Phu Garcia MD HPI narrative: 52-year-old male with a history of diabetes tells me he was in a supermarket just prior to arrival and felt about 5 or 6 seconds of heavy profound beat palpitations and lowered himself to the floor after f he was having trouble walking feeling presyncopal lightheaded. No convulsive activity incontinence. No associated chest pain. No vertiginous symptoms He got himself up shortly after this. Denied any headache focal neurologic complaints. Related Data Previous Rx's ?Medication ?Instructions ?Recorded amlodipine 5 mg tablet 5 mg PO DAILY #30 tabs 04/17 blood sugar diagnostic (FreeStyle #100 ea 08/28/25 Lite Strips) blood-glucose meter (FreeStyle #1 ea 08/28/25 Lite Meter kit) lancets 28 gauge (FreeStyle #100 ea 08/28/25 Lancets) metformin 500 mg tablet 500 mg PO BID #60 tabs 08/28 pen needle, diabetic 32 gauge x #100 ea 08/28/25 1/ Allergies Allergy/AdvReac Type Severity Reaction Status Date / Time No Known Allergies Allergy Verified 08/27/25 15:22 [facility] Past Medical History Medical History (Updated 08/28/25 @ 08:09 by Yessenia Vargas MD) Hypertension Diabetes mellitus type 2 in nonobese Surgical History No pertinent past surgical history Family History Family History (Updated 08/27/25 @ 17:45 by Tracey Mireles NP) Father Diabetes mellitus type 2 in nonobese Social History Social History Household Members: Significant Other Housing: Apartment Do you presently have visiting nurse or other home services: No Comment: Pt refusing non skid socks Patient Tobacco Use Status: Never used Tobacco service: No Physical Exam ED Exam Exam: GENERAL: Well appearing. No apparent distress. Alert. HEAD/NECK: Normal to inspection. Neck supple. No cervical lymphadenopathy. EYES: Normal to inspection. Sclera non-icteric. ENMT: External nose normal. RESPIRATORY: Respiratory effort normal. Lungs clear to auscultation bilaterally. CARDIOVASCULAR: Rapid and regular. Normal rhythm. No murmur. No rubs. GI: Soft, non-tender, non-distended. No rebound or guarding. No masses palpable. No hepatosplenomegaly. SKIN: No jaundice. NEUROLOGICAL: Alert. PSYCHIATRIC: Alert. Appearance appropriate for situation. Attitude cooperative. OTHER: Comprehensive Neuro exam: Face symmetric, tongue midline, strong symmetric eye closure, pupils symmetric and reactive to light, intact sensation to the face throughout, intact strong face deviation and shoulder shrug. Sensation intact to light touch throughout * 5 out of 5 strength in bilateral upper extremities, 5 and 5 strength in lower extremities Vital Signs: Vital Signs - 24 hr 08/27/25 15:20 08/27/25 16:17 Temperature 98.6 F Pulse Rate 110 H 100 Respiratory Rate 18 16 Blood Pressure 154/96 H 133/76 Pulse Oximetry 96 98 Oxygen Delivery Method Room Air Room Air BMI result Body Mass Index 26.5 Course Course Course Narrative: This is a Rapid Medical Examination (RME) performed by Herrera Mondragon PA-C in triage. Full HPI, ROS, assessment and treatment plan per primary provider in the Main ED. Hx: 60 yo M reports 3 strong heart beats , then felt dizzy, began walking like I was drunk 4 hours ago while at the supermarket. feels mildly dizzy at present. no chest pain. states he was here 4 months ago, was told I have something in the heart . PE/vitals: tachycardic Plan: labs ekg Medications Administered Generic Name Dose Route Start Last Admin Trade Name Freq PRN Reason Stop Dose Admin Enoxaparin Sodium 40 mg 08/27/25 18:00 08/27/25 19:25 Enoxaparin Sodium 40 Mg/0.4 Ml Syringe SUBCUT Not Given Q24H [facility] Insulin Glargine 10 unit 08/27/25 21:00 08/27/25 22:30 Insulin Glargine,Hum.Rec.Anlog 100 Unit/Ml 10 Ml Vial SUBCUT 10 unit BEDTIME AMANDA Administration Insulin Human Lispro 0 unit 08/27/25 21:00 08/28/25 07:59 Insulin Lispro 100 Unit/Ml 3 Ml Vial SUBCUT 4 unit QIDACHS [facility] Administration Protocol Discontinued Medications Generic Name Dose Route Start Last Admin Trade Name Kristopher PRN Reason Stop Dose Admin Lactated Ringer's 1,000 mls @ 999 mls/hr 08/27/25 16:00 08/27/25 19:25 Lr IV 08/27/25 18:00 Infused .Q1H1M AMANDA Infusion Insulin Human Regular 12 unit 08/27/25 15:54 08/27/25 16:34 Insulin Regular, Human 100 Unit/Ml 10 Ml Vial IVPUSH 08/27/25 15:55 12 unit ONCE ONE Administration Medical Decision Making Medical Decision Making MDM Narrative: Medical Decision Makin-year-old male with syncope. This was preceded by about 4 strong beat palpitation then he felt lightheaded unsteady gait and lowered himself to the ground no traumatic injuries. No previous similar. He does have diabetes on metformin only he is profoundly hyperglycemic today this could be contributing to this with possible intravascular depletion and dehydration however the palpitations make me concerned about possible transient arrhythmia. Given the patient's age severe hyperglycemia recommend admission. Continue telemetry monitoring. IV hydration and insulin. No evidence of DKA or HHS. No nystagmus or persistent vertiginous symptoms doubt CVA, the ?drunk ?disease symptoms not suggestive of peripheral vertigo or CVA more likely vasovagal Preliminary Favored Differential Diagnosis: Syncope, hyperglycemia, DKA, arrhythmia, ACS mi among additional considered etiologies Testing Interpreted Independently: ?ECG: Sinus tachycardia rate 106 QTC 430, there is a new appearance of high voltage T-waves though they seem proportional to the QRS complex in the precordium. No ST depressions or ST elevation suggestive of acute ischemic changes. Radiology or Lab testing Results Reviewed: Troponin mildly elevated, previous presentation to the ED patient had more elevated troponin that was stable. This is lower than that. Hyperglycemia severe without DKA. Pseudo hyponatremia is present. Consults: ?See below for details Independent Historians/External Chart Reviews: ?See below for details Social Determinants of Health Impacting MDM/Planning: ?See below for details Consult Healthcare Provider Management of the patient was discussed with: Hospitalist Lab Data MDM Lab Attestation statement: I reviewed the patient's lab results. 08/28/25 06:24 08/28/25 06:24 Labs: Lab Results 08/27/25 08/27/25 Range/Units 15:29 16:21 WBC 10.7 (4.8-10.8) X10*3/uL RBC 5.65 (4.60-5.80) X10*6/uL Hgb 16.2 (14.0-18.0) g/dl Hct 46.9 (42.0-52.0) % MCV 83.0 (80.0-98.0) fL MCH 28.7 (27.0-33.0) pg MCHC 34.5 (31.0-36.0) g/dl RDW 12.5 (11.0-16.0) % Plt Count 209 (160-400) X10*3/uL MPV 11.4 (9.4-12.4) fL Immature Gran % (Auto) 0.4 (0.0-0.4) % Neut % (Auto) 72.8 (45-73) % Lymph % (Auto) 20.3 (20-40) % [place] % (Auto) 5.6 (2-11) % Eos % (Auto) 0.6 (0-4) % Baso % (Auto) 0.3 (0-2) % Lymph # (Auto) 2.2 (1.2-4.9) X10*3/uL [place] # (Auto) 0.6 (0.1-1.2) X10*3/uL Eos # (Auto) 0.1 (0.0-0.4) X10*3/uL Baso # (Auto) 0.0 (0.0-0.2) X10*3/uL Abs Immat Gran (auto) 0.04 H (0.00-0.03) X10*3/uL Absolute Neuts (auto) 7.8 (2.0-8.3) x10*3/uL Absolute Nucleated RBC 0.000 (0.0-0.012) X10*3/uL Nucleated RBC % (auto) 0.0 (0.0-0.2) /100WBC D-Dimer High Sensitivty < 150 NG/ML Sodium 128 L (135-145) mmol/L Potassium 4.2 (3.3-5.1) mmol/L Chloride 95 L (96-108) mmol/L Carbon Dioxide 24 (22-29) mmol/L Anion Gap 13 (12-20) BUN 11 (9-16) mg/dL Creatinine 1.14 (0.5-1.4) mg/dL Estim Creat Clear Calc 75.2 Estimated GFR > 60 Random Glucose 687 H* (60-115) mg/dL Estimat Average Glucose TNP Hemoglobin A1c % > 14.0 H (<6.0) % Calcium 9.2 (8.4-10.2) mg/dL Magnesium 1.9 (1.6-2.6) mg/dL Total Bilirubin 0.5 (0.0-1.0) mg/dL AST 23 (5-37) U/L ALT 49 H (0-40) U/L Alkaline Phosphatase 192 H (39-117) U/L Troponin I High Sens 58.7 H D (<3.5-35.0) ng/L Total Protein 7.4 (6.5-8.0) g/dL Albumin 4.2 (3.5-5.0) g/dL Beta-Hydroxybutyrate 0.21 (0.02-0.27) mmol/L TSH 1.11 (0.32-4.0) uIU/mL Critical Care Time Critical Care Time Critical Care Time: Yes Total Critical Care Time: 30 Attestation: ED Critical Care: High-risk sent to be, severe hyperglycemia severely uncontrolled diabetes Authorized and Performed by: Phu Garcia MD Total critical care time: Approximately 30 min Due to a high probability of clinically significant, life threatening deterioration, the patient required my highest level of preparedness to intervene emergently and I personally spent this critical care time directly and personally managing the patient. This critical care time included obtaining a history; examining the patient; pulse oximetry; ordering and review of studies; arranging urgent treatment with development of a management plan; evaluation of patient's response to treatment; frequent reassessment; and, discussions with other providers. This critical care time was performed to assess and manage the high probability of imminent, life-threatening deterioration that could result in multi-organ failure. It was exclusive of separately billable procedures and treating other patients and teaching time. Discharge Plan Discharge Clinical Impression: Hyperglycemia Patient Disposition: Admitted As Inpatient Interventions: Admission Worksheet (ED) Last Done: 08/27/25 19:11 Discharge Date/Time: 08/27/25 19:36
[2025-08-27 15:35] LABS: MANUAL DIFF FLAG NO
[2025-08-27 15:38] LABS: Hematocrit 46.9 % (42.0-52.0); Hemoglobin 16.2 g/dl (14.0-18.0); Imm Gran Abs Auto 0.04 X10*3/uL (0.00-0.03); Imm Gran Pct Auto 0.4 % (0.0-0.4); Lymphocytes Absolute Auto 2.2 X10*3/uL (1.2-4.9); Mean Corpuscular HGB Conc 34.5 g/dl (31.0-36.0); Mean Corpuscular Hemoglobin 28.7 pg (27.0-33.0); Mean Corpuscular Volume 83.0 fL (80.0-98.0); NRBC Abs Auto 0.000 X10*3/uL (0.0-0.012); NRBC Pct Auto 0.0 /100WBC (0.0-0.2); Platelet Count 209 X10*3/uL (160-400); Red Blood Count 5.65 X10*6/uL (4.60-5.80); White Blood Count 10.7 X10*3/uL (4.8-10.8)
[2025-08-27 15:52] LABS: Alanine Aminotransferase 49 U/L (0-40); Albumin Level 4.2 g/dL (3.5-5.0); Alkaline Phosphatase 192 U/L (39-117); Anion Gap 13 (12-20); Aspartate Amino Transferase 23 U/L (5-37); Blood Urea Nitrogen 11 mg/dL (9-16); Calcium 9.2 mg/dL (8.4-10.2); Carbon Dioxide 24 mmol/L (22-29); Chloride 95 mmol/L (96-108); Creatinine Clr Calc Pharmacy 75.2; Estimated Glomerular Filt Rate > 60; Magnesium 1.9 mg/dL (1.6-2.6); Potassium 4.2 mmol/L (3.3-5.1); Sodium 128 mmol/L (135-145); Total Protein 7.4 g/dL (6.5-8.0)
[2025-08-27 15:56] LABS: Troponin-I High Sensitivity 58.7 ng/L (<3.5-35.0)
[2025-08-27] MEDS: Lactated Ringers 1,000 ML 999 ML IV ×2 (16:10→16:13)
[2025-08-27 16:17] VITALS: BP 133/76; PULSE 100; RESP 16; TEMP 37; O2SAT 98
[2025-08-27 16:33] LABS: Thyroid Stimulating Hormone 1.11 uIU/mL (0.32-4.0)
[2025-08-27 16:37] LABS: D Dimer High Sensitivity < 150 NG/ML
--- NOTE | 2025-08-27 17:12 | P.HPHOSP_ITS ---
History of Present Illness Date of Service: 08/27/25 Chief Complaint: heart palpitations 60-year-old man with new diabetes mellitus. Reports that he was at a store couple of days ago and suddenly felt his heart beating fast and he felt dizzy. He denied any loss of consciousness. He was apparently diagnosed with diabetes mellitus type 2 about 4 months ago and started on metformin. He reported he took it for about a week and then thought that it would not help him. He has been feeling these palpitations over the last couple of days and decided come to the ER for further evaluation. Reports no other significant medical history. It looks like he was started on amlodipine and likely he has not been taking that either. EKG showed sinus tachycardia with left atrial enlargement and left ventricular hypertrophy. Sodium was 128, random glucose 687, creatinine 1.14. Patient was given IV insulin in the ER. Plan will be to place patient on observation for further management and treatment of hyperglycemia and palpitations. Review of Systems 2 Review of Systems: Denies any recent fever chills or decrease in appetite respiratory denies any shortness of breath or cough cardiovascular denied chest pain, reported health palpitations gastrointestinal denies any dysphagia abdominal pain nausea vomiting or diarrhea genitourinary denies any dysuria frequency or hematuria musculoskeletal denies any joint pain or swelling neuropsych denies any weakness or seizures all other systems reviewed are negative [facility] Medical History (Updated 08/27/25 @ 17:46 by Tracey Mireles NP) Hypertension Diabetes mellitus type 2 in nonobese Family History (Updated 08/27/25 @ 17:45 by Tracey Mireles NP) Father Diabetes mellitus type 2 in nonobese Surgical History (Updated 08/27/25 @ 17:44 by Tracey Mireles NP) No pertinent past surgical history Social History Advance Directives: No Advance Directives Information Provided: No Do you have a plan to hurt others: No Plan Meds Allergies Allergy/AdvReac Type Severity Reaction Status Date / Time No Known Allergies Allergy Verified 08/27/25 15:22 Active Medications: Current Medications Acetaminophen (Acetaminophen 325 Mg Tablet) 650 mg PO Q6H PRN PRN Reason: Pain, Mild 1-3,fever,headache Dextrose (Dextrose 50 % 25 Gm/50 Ml Syringe) 25 gm IVPUSH Q15M PRN; Protocol PRN Reason: per Hypoglycemia Standing Ord. Glucose (Glucose Gel 15 Gm Gel..Gram.) 15 gm PO Q15M PRN; Protocol PRN Reason: per Hypoglycemia Standing Ord. Lactated Ringer's (Lr) 1,000 mls @ 999 mls/hr IV .Q1H1M [facility] Stop: 08/27/25 18:00 Last Admin: 08/27/25 16:13 Dose: 999 mls/hr Insulin Glargine (Insulin Glargine,Hum.Rec.Anlog 100 Unit/Ml 10 Ml Vial) 10 unit SUBCUT BEDTIME [facility] Insulin Human Lispro (Insulin Lispro 100 Unit/Ml 3 Ml Vial) 0 unit SUBCUT QIDACHS [facility]; Protocol Physical Exam 2 Vital Signs and Narrative: Vital Signs: Last Vital Signs Temp 98.6 F 08/27/25 16:17 Pulse 100 08/27/25 16:17 Resp 16 08/27/25 16:17 BP 133/76 08/27/25 16:17 Pulse Ox 98 08/27/25 16:17 O2 Del Method Room Air 08/27/25 16:17 BMI result Body Mass Index 26.5 Appearing in no acute distress head is normocephalic atraumatic eyes pupils are PERRLA sclera is anicteric mouth throat mucous membranes are intact and moist neck is supple no lymphadenopathy, no JVD noted lung sounds are clear to auscultation heart regular rate rhythm, clear S1, S2 positive bowel sounds, abdomen is soft, nontender neuro patient is alert x3, no focal deficits Results Labs 08/27/25 15:29 08/27/25 15:29 Labs: Laboratory Results - last 24 hr 08/27/25 08/27/25 15:29 16:21 MCV 83.0 MCH 28.7 MCHC 34.5 RDW 12.5 Plt Count 209 MPV 11.4 Immature Gran % (Auto) 0.4 Neut % (Auto) 72.8 Lymph % (Auto) 20.3 [place] % (Auto) 5.6 Eos % (Auto) 0.6 Baso % (Auto) 0.3 Lymph # (Auto) 2.2 [place] # (Auto) 0.6 Eos # (Auto) 0.1 Baso # (Auto) 0.0 Abs Immat Gran (auto) 0.04 H Absolute Neuts (auto) 7.8 Absolute Nucleated RBC 0.000 Nucleated RBC % (auto) 0.0 D-Dimer High Sensitivty < 150 Anion Gap 13 Estim Creat Clear Calc 75.2 Estimated GFR > 60 Random Glucose 687 H* Calcium 9.2 Magnesium 1.9 Total Bilirubin 0.5 AST 23 ALT 49 H Alkaline Phosphatase 192 H Troponin I High Sens 58.7 H D Total Protein 7.4 Albumin 4.2 Beta-Hydroxybutyrate 0.21 TSH 1.11 Assessment and Plan (1) Hyperglycemia: Status: Acute Plan 60 year old man admitted with hyperglycemia and heart palpitations Diabetes mellitus type 2 with hyperglycemia without DKA Noncompliant with metformin No anion gap, normal beta hydroxybutyrate and bicarb, blood sugar 687 Given IV insulin in the ER Sliding scale, check blood sugars a.c. h.s. Lantus 10 units at bedtime IV fluids Check A1c Hyponatremia Secondary to hypoglycemia Follow BMP closely IV fluids Heart palpitations EKG showing sinus tachycardia with left ventricular hypertrophy Echocardiogram Monitor on telemetry Hypertension Continue amlodipine if blood pressure allows as it is unknown if patient has been compliant with taking the medication DVT prophylaxis Lovenox Full code Quality Stroke Does the patient have a stroke diagnosis?: No VTE Prior VTE?: No VTE Risk Level:: Medical - moderate - high VTE Device Contraindication: Treatment Not Indicated VTE Drug Contraindication: N/A - Med Ordered
[2025-08-27 17:50] LABS: Glucose, Whole Blood 176 mg/dL (60-115)
[2025-08-27 17:50] LABS: Anion Gap 14 (12-20); Blood Urea Nitrogen 11 mg/dL (9-16); Calcium 9.7 mg/dL (8.4-10.2); Carbon Dioxide 29 mmol/L (22-29); Chloride 102 mmol/L (96-108); Creatinine Clr Calc Pharmacy 85.7; Estimated Glomerular Filt Rate > 60; Potassium 3.6 mmol/L (3.3-5.1); Sodium 141 mmol/L (135-145)
[2025-08-27 17:51] LABS: Anion Gap 14 (12-20); Blood Urea Nitrogen 11 mg/dL (9-16); Calcium 9.7 mg/dL (8.4-10.2); Carbon Dioxide 30 mmol/L (22-29); Chloride 102 mmol/L (96-108); Creatinine Clr Calc Pharmacy 84.9; Estimated Glomerular Filt Rate > 60; Potassium 3.7 mmol/L (3.3-5.1); Sodium 142 mmol/L (135-145)
[2025-08-27 17:55] LABS: Appearance Urine Clear; Glucose Urine UA >=1000 mg/dL (Negative); PH 7.0 (5.0-9.0); Specific Gravity - Urine >= 1.030 (1.005-1.025); UMIC TRIGGER UACC YES
[2025-08-27 17:57] LABS: Troponin-I High Sensitivity 69.7 ng/L (<3.5-35.0)
--- NOTE | 2025-08-27 18:29 | PHA.MEDREC ---
Addendum entered by Austin Farr RPh 08/27/25 18:31: Med rec reviewed Original Note: Pharmacy Consult ? Medication Reconciliation Pharmacy has completed the medication reconciliation. Spoke with pt and he confirmed he should be taking Amlodipine QD and Metformin BID but ran out of those ~3 months ago and has not been able to get them filled.
--- NOTE | 2025-08-27 18:46 | HO.NURTONUR ---
60 yr male admitted for hyperglycemia. Came to ED with c/o feeling dizzy. BS noted to be 687 on arrival; sodium 128. Pt is non-complaint with metformin. A&Ox3 VSS 20g to LAC IVF and insulin given with good result.
--- NOTE | 2025-08-27 19:25 | PC.NURSE ---
this rn assumed care of pt, pt resting in stretcher, no acute distress noted. awaiting bed assignment
[2025-08-27 19:43] VITALS: BP 136/83; PULSE 95; RESP 16; TEMP 37.1; O2SAT 96; BMI 27.2
[2025-08-27 22:12] LABS: Glucose, Whole Blood 355 mg/dL (60-115)
[2025-08-27] MEDS: Insulin Glargine,Hum.rec.anlog 100 UNIT/ML 10 ML VIAL 10 UNIT SUBCUT (22:30)
[2025-08-27 23:52] VITALS: BP 122/70; PULSE 94; RESP 18; TEMP 36.6; O2SAT 98
[2025-08-28 03:16] VITALS: BP 133/78; PULSE 84; RESP 18; TEMP 36.5; O2SAT 98
[2025-08-28 06:47] LABS: Hematocrit 45.7 % (42.0-52.0); Hemoglobin 15.5 g/dl (14.0-18.0); Mean Corpuscular HGB Conc 33.9 g/dl (31.0-36.0); Mean Corpuscular Hemoglobin 28.9 pg (27.0-33.0); Mean Corpuscular Volume 85.1 fL (80.0-98.0); NRBC Abs Auto 0.000 X10*3/uL (0.0-0.012); NRBC Pct Auto 0.0 /100WBC (0.0-0.2); Platelet Count 204 X10*3/uL (160-400); Red Blood Count 5.37 X10*6/uL (4.60-5.80); White Blood Count 9.2 X10*3/uL (4.8-10.8)
[2025-08-28 06:56] LABS: Glucose, Whole Blood 223 mg/dL (60-115)
[2025-08-28 07:04] VITALS: BP 124/74; PULSE 93; RESP 18; TEMP 37.1; O2SAT 96
[2025-08-28 07:10] LABS: Alanine Aminotransferase 37 U/L (0-40); Albumin Level 3.6 g/dL (3.5-5.0); Alkaline Phosphatase 127 U/L (39-117); Anion Gap 12 (12-20); Aspartate Amino Transferase 19 U/L (5-37); Blood Urea Nitrogen 13 mg/dL (9-16); Calcium 8.9 mg/dL (8.4-10.2); Carbon Dioxide 30 mmol/L (22-29); Chloride 103 mmol/L (96-108); Creatinine Clr Calc Pharmacy 76.5; Estimated Glomerular Filt Rate > 60; Potassium 3.9 mmol/L (3.3-5.1); Sodium 141 mmol/L (135-145); Total Protein 6.4 g/dL (6.5-8.0)
--- NOTE | 2025-08-28 09:42 | MHC.CM.PN ---
Ruby 08/28/25, Pt. lives with his friend, he came here recently from [place], does not have a PCP, brochure and # for [facility] given. Pt. does not have a HCP, form to be completed here and added to his chart. He does not have home health services, or use DME. he can arrange transport home at [place], DCP: home, self care, CM to follow for [place] needs.
[2025-08-28 10:57] LABS: Glucose, Whole Blood 296 mg/dL (60-115)
[2025-08-28 11:03] VITALS: BP 129/79; PULSE 95; RESP 18; TEMP 37.1; O2SAT 97
--- NOTE | 2025-08-28 14:48 | P.DS_ITS ---
DS: Providers Provider Date of Service: 08/28/25 Date of admission: 08/27/25 17:09 Date of discharge: 08/28/25 Primary care physician: None Physician Attending physician on discharge: Yessenia Vargas Discharging clinician: Yessenia Vargas DS: Diagnosis Discharge Diagnosis (1) Hyperglycemia: Status: Acute DS: Summary Hospital Course Hospital Course: HPI:60-year-old man with new diabetes mellitus. Reports that he was at a store couple of days ago and suddenly felt his heart beating fast and he felt dizzy. He denied any loss of consciousness. He was apparently diagnosed with diabetes mellitus type 2 about 4 months ago and started on metformin. He reported he took it for about a week and then thought that it would not help him. He has been feeling these palpitations over the last couple of days and decided come to the ER for further evaluation. Reports no other significant medical history. It looks like he was started on amlodipine and likely he has not been taking that either. EKG showed sinus tachycardia with left atrial enlargement and left ventricular hypertrophy. Sodium was 128, random glucose 687, creatinine 1.14. Patient was given IV insulin in the ER. Plan will be to place patient on observation for further management and treatment of hyperglycemia and palpitations. Hospital course: dm with hyperglycemia :Patient was started on lantus ,sliding scale : seems to be improved significantly, denies any new symptoms,denies any palpatations, EKG sinus mild tachycardia which is resolved, patient refused further workup -left ama ,aox3 ,risks of leaving ama explained to him in detail ,he understands and could able to repeat back. pseudohyponatremia: secondary to hyperglycemia , resolved. patient will be going home with lantus,sliding scale insulin , metformin, diet Compliance advised , Encouraged for hydration. patient was strongly encouraged for PCP appointment outpatient follow-up. Plan: Continue Lantus, sliding scale insulin, metformin, diabetic diet, Encouraged for hydration. patient was strongly encouraged for PCP appointment outpatient follow-up. Above management discussed with the patient detail length he understand and in agreement with the above plan, time spent 45 minute. Time Attestation Total time managing care of this patient today: 45 mintues. Discharge Coordination Time (in mins): 45 minutes Quality: Safe Use of Opioids Does Pt have an Active Cancer Diagnosis on the Problem List?: No Quality: Stroke Does the patient have a stroke diagnosis?: No Physical Exam Exam: Exam: Appearance: Alert.? Oriented X3.? cvs: rrr, [id number] , no murmur res: clear to auscultation ,no rhonchii or wheezing abd: no rebound or guarding ,nt, bs present. ext pulses present , no cyanosis . neuro: axo3 , nonfocal. Vital Signs: Vital Signs: Last Vital Signs Temp 98.7 F 08/28/25 11:03 Pulse 95 08/28/25 11:03 Resp 18 08/28/25 11:03 BP 129/79 08/28/25 11:03 Pulse Ox 97 08/28/25 11:03 O2 Del Method Room Air 08/28/25 11:03 BMI result Body Mass Index 27.2 DS: Data Data Completed and Pending Labs on day of discharge: Laboratory Results - last 24 hr 08/27/25 08/27/25 08/27/25 15:29 16:21 17:23 WBC 10.7 RBC 5.65 Hgb 16.2 Hct 46.9 MCV 83.0 MCH 28.7 MCHC 34.5 RDW 12.5 Plt Count 209 MPV 11.4 Immature Gran % (Auto) 0.4 Neut % (Auto) 72.8 Lymph % (Auto) 20.3 [place] % (Auto) 5.6 Eos % (Auto) 0.6 Baso % (Auto) 0.3 Lymph # (Auto) 2.2 [place] # (Auto) 0.6 Eos # (Auto) 0.1 Baso # (Auto) 0.0 Abs Immat Gran (auto) 0.04 H Absolute Neuts (auto) 7.8 Absolute Nucleated RBC 0.000 Nucleated RBC % (auto) 0.0 D-Dimer High Sensitivty < 150 Sodium 128 L 142 Potassium 4.2 Chloride 95 L Carbon Dioxide 24 Anion Gap 13 BUN 11 Creatinine 1.14 Estim Creat Clear Calc 75.2 Estimated GFR > 60 POC Glucose Random Glucose 687 H* Estimat Average Glucose TNP Hemoglobin A1c % > 14.0 H Calcium 9.2 Magnesium 1.9 Total Bilirubin 0.5 AST 23 ALT 49 H Alkaline Phosphatase 192 H Troponin I High Sens 58.7 H D Total Protein 7.4 Albumin 4.2 Beta-Hydroxybutyrate 0.21 TSH 1.11 Urine Color Urine Appearance Urine pH Ur Specific [place] Urine Protein Urine Glucose (UA) Urine Ketones Urine Blood Urine Nitrite Ur Leukocyte Esterase Urine RBC Urine WBC Ur Squamous Epith Cells Urine Bacteria Hyaline Casts 08/27/25 08/27/25 08/27/25 17:23 17:23 17:23 WBC RBC Hgb Hct MCV MCH MCHC RDW Plt Count MPV Immature Gran % (Auto) Neut % (Auto) Lymph % (Auto) [place] % (Auto) Eos % (Auto) Baso % (Auto) Lymph # (Auto) [place] # (Auto) Eos # (Auto) Baso # (Auto) Abs Immat Gran (auto) Absolute Neuts (auto) Absolute Nucleated RBC Nucleated RBC % (auto) D-Dimer High Sensitivty Sodium 141 Potassium 3.7 3.6 Chloride 102 102 Carbon Dioxide 30 H Anion Gap BUN Creatinine Estim Creat Clear Calc Estimated GFR POC Glucose Random Glucose Estimat Average Glucose Hemoglobin A1c % Calcium Magnesium Total Bilirubin AST ALT Alkaline Phosphatase Troponin I High Sens Total Protein Albumin Beta-Hydroxybutyrate TSH Urine Color Urine Appearance Urine pH Ur Specific [place] Urine Protein Urine Glucose (UA) Urine Ketones Urine Blood Urine Nitrite Ur Leukocyte Esterase Urine RBC Urine WBC Ur Squamous Epith Cells Urine Bacteria Hyaline Casts 08/27/25 08/27/25 08/27/25 17:23 17:23 17:23 WBC RBC Hgb Hct MCV MCH MCHC RDW Plt Count MPV Immature Gran % (Auto) Neut % (Auto) Lymph % (Auto) [place] % (Auto) Eos % (Auto) Baso % (Auto) Lymph # (Auto) [place] # (Auto) Eos # (Auto) Baso # (Auto) Abs Immat Gran (auto) Absolute Neuts (auto) Absolute Nucleated RBC Nucleated RBC % (auto) D-Dimer High Sensitivty Sodium Potassium Chloride Carbon Dioxide 29 Anion Gap 14 14 BUN 11 11 Creatinine 1.01 Estim Creat Clear Calc Estimated GFR POC Glucose Random Glucose Estimat Average Glucose Hemoglobin A1c % Calcium Magnesium Total Bilirubin AST ALT Alkaline Phosphatase Troponin I High Sens Total Protein Albumin Beta-Hydroxybutyrate TSH Urine Color Urine Appearance Urine pH Ur Specific [place] Urine Protein Urine Glucose (UA) Urine Ketones Urine Blood Urine Nitrite Ur Leukocyte Esterase Urine RBC Urine WBC Ur Squamous Epith Cells Urine Bacteria Hyaline Casts 08/27/25 08/27/25 08/27/25 17:23 17:23 17:23 WBC RBC Hgb Hct MCV MCH MCHC RDW Plt Count MPV Immature Gran % (Auto) Neut % (Auto) Lymph % (Auto) [place] % (Auto) Eos % (Auto) Baso % (Auto) Lymph # (Auto) [place] # (Auto) Eos # (Auto) Baso # (Auto) Abs Immat Gran (auto) Absolute Neuts (auto) Absolute Nucleated RBC Nucleated RBC % (auto) D-Dimer High Sensitivty Sodium Potassium Chloride Carbon Dioxide Anion Gap BUN Creatinine 1.00 Estim Creat Clear Calc 84.9 85.7 Estimated GFR > 60 > 60 POC Glucose Random Glucose 133 H Estimat Average Glucose Hemoglobin A1c % Calcium Magnesium Total Bilirubin AST ALT Alkaline Phosphatase Troponin I High Sens Total Protein Albumin Beta-Hydroxybutyrate TSH Urine Color Urine Appearance Urine pH Ur Specific [place] Urine Protein Urine Glucose (UA) Urine Ketones Urine Blood Urine Nitrite Ur Leukocyte Esterase Urine RBC Urine WBC Ur Squamous Epith Cells Urine Bacteria Hyaline Casts 08/27/25 08/27/25 08/27/25 17:23 17:23 17:46 WBC RBC Hgb Hct MCV MCH MCHC RDW Plt Count MPV Immature Gran % (Auto) Neut % (Auto) Lymph % (Auto) [place] % (Auto) Eos % (Auto) Baso % (Auto) Lymph # (Auto) [place] # (Auto) Eos # (Auto) Baso # (Auto) Abs Immat Gran (auto) Absolute Neuts (auto) Absolute Nucleated RBC Nucleated RBC % (auto) D-Dimer High Sensitivty Sodium Potassium Chloride Carbon Dioxide Anion Gap BUN Creatinine Estim Creat Clear Calc Estimated GFR POC Glucose 176 H Random Glucose 139 H Estimat Average Glucose Hemoglobin A1c % Calcium 9.7 9.7 Magnesium Total Bilirubin AST ALT Alkaline Phosphatase Troponin I High Sens 69.7 H Total Protein Albumin Beta-Hydroxybutyrate TSH Urine Color Urine Appearance Urine pH Ur Specific [place] Urine Protein Urine Glucose (UA) Urine Ketones Urine Blood Urine Nitrite Ur Leukocyte Esterase Urine RBC Urine WBC Ur Squamous Epith Cells Urine Bacteria Hyaline Casts 08/27/25 08/27/25 08/28/25 17:48 22:09 06:24 WBC 9.2 RBC 5.37 Hgb 15.5 Hct 45.7 MCV 85.1 MCH 28.9 MCHC 33.9 RDW 12.6 Plt Count 204 MPV 11.0 Immature Gran % (Auto) Neut % (Auto) Lymph % (Auto) [place] % (Auto) Eos % (Auto) Baso % (Auto) Lymph # (Auto) [place] # (Auto) Eos # (Auto) Baso # (Auto) Abs Immat Gran (auto) Absolute Neuts (auto) Absolute Nucleated RBC 0.000 Nucleated RBC % (auto) 0.0 D-Dimer High Sensitivty Sodium 141 Potassium 3.9 Chloride 103 Carbon Dioxide 30 H Anion Gap 12 BUN 13 Creatinine 1.12 Estim Creat Clear Calc 76.5 Estimated GFR > 60 POC Glucose 355 H* Random Glucose 216 H Estimat Average Glucose Hemoglobin A1c % Calcium 8.9 D Magnesium Total Bilirubin 0.5 AST 19 ALT 37 Alkaline Phosphatase 127 H Troponin I High Sens Total Protein 6.4 L Albumin 3.6 Beta-Hydroxybutyrate TSH Urine Color Yellow Urine Appearance Clear Urine pH 7.0 Ur Specific [place] >= 1.030 H Urine Protein Negative Urine Glucose (UA) >=1000 H Urine Ketones Negative Urine Blood Negative Urine Nitrite Negative Ur Leukocyte Esterase Negative Urine RBC 0-2 Urine WBC 0-5 Ur Squamous Epith Cells 0-2 Urine Bacteria None Seen Hyaline Casts 0-2 08/28/25 08/28/25 06:52 10:53 WBC RBC Hgb Hct MCV MCH MCHC RDW Plt Count MPV Immature Gran % (Auto) Neut % (Auto) Lymph % (Auto) [place] % (Auto) Eos % (Auto) Baso % (Auto) Lymph # (Auto) [place] # (Auto) Eos # (Auto) Baso # (Auto) Abs Immat Gran (auto) Absolute Neuts (auto) Absolute Nucleated RBC Nucleated RBC % (auto) D-Dimer High Sensitivty Sodium Potassium Chloride Carbon Dioxide Anion Gap BUN Creatinine Estim Creat Clear Calc Estimated GFR POC Glucose 223 H 296 H Random Glucose Estimat Average Glucose Hemoglobin A1c % Calcium Magnesium Total Bilirubin AST ALT Alkaline Phosphatase Troponin I High Sens Total Protein Albumin Beta-Hydroxybutyrate TSH Urine Color Urine Appearance Urine pH Ur Specific [place] Urine Protein Urine Glucose (UA) Urine Ketones Urine Blood Urine Nitrite Ur Leukocyte Esterase Urine RBC Urine WBC Ur Squamous Epith Cells Urine Bacteria Hyaline Casts Discharge Plan Discharge Anticipated Discharge Date/Time: 08/28/25 08:06 Patient Disposition: Left Against Medical Advice Discharge Diagnosis: uncontrolled dm with hyperglycemia Referrals: Physician,None [Primary Care Provider, Medical] - 1 Week Discharge Medications: New (DME) FreeStyle Lite Strips Strip Qty: 100 0RF Rx Instructions: Test four times a day or as directed. (DME) blood-glucose meter [FreeStyle Lite Meter] Kit Qty: 1 0RF Rx Instructions: As Directed (DME) pen needle, diabetic 32 gauge x 1/4 needle Qty: 100 0RF Rx Instructions: Use four times a day or as directed. (DME) lancets [FreeStyle Lancets] 28 gauge misc Qty: 100 0RF Rx Instructions: Test four times a day or as directed. alcohol swabs Pads, Medicated 1 pad TOPICAL QIDACHS Qty: 100 0RF Rx Instructions: Use four times a day or as directed. insulin glargine [Lantus Solostar U-100 Insulin] 100 unit/mL (3 mL) insulin pen 10 unit SUBCUT BEDTIME Qty: 15 0RF insulin lispro [Humalog KwikPen Insulin] 100 unit/mL insulin pen 0 sliding scale dose SUBCUT QIDACHS Qty: 15 0RF Rx Instructions: Blood Sugar: <150 - 0 units 151-200 - 2 units 201-250 - 4 units 251-300 - 6 units 301-350 - 8 units >350 - 10 units Continued metformin 500 mg tablet 500 mg PO BID Qty: 60 0RF amlodipine 5 mg tablet 5 mg PO DAILY Qty: 90 0RF Discharge Orders: Discharge Order (Routine); Ordered 08/28/25 Ordered By: Yessenia Vargas Diet: Advance to usual diet Activity on Discharge: As tolerated Stand Alone Forms: Patient Portal Discharge page, Against Medical Advice, Work/School Release Print Language: Upper Sorbian Care Plan Goals: As below. Health Concerns: As above. Plan of Treatment: As above. Assessment: As above. Discharge Date/Time: 08/28/25 15:02
== END 2025-08-28 15:02 | disposition left against medical advice (07) ==
LOC: HO.ED 16:01 → HO.EDOVER 17:19 → HO.IMC 19:08
PROVIDERS: Physician Assistant Medical; Admitting Provider Nurse Practitioner Acute Care; Emergency Provider Emergency Medicine; Visit Provider Internal Medicine
DX: E11.65 Type 2 diabetes mellitus with hyperglycemia (principal); R07.9 Chest pain, unspecified; R00.2 Palpitations; R55 Syncope and collapse; I10 Essential (primary) hypertension; R00.0 Tachycardia, unspecified; R94.31 Abnormal electrocardiogram [ECG] [EKG]; E87.1 Hypo-osmolality and hyponatremia; Z53.29 Procedure and treatment not carried out because of patient's decision for other reasons; Z79.84 Long term (current) use of oral hypoglycemic drugs; Z71.3 Dietary counseling and surveillance
CPT/HCPCS: 36415; 80048; 80053; 81001; 82010; 82947; 83036; 83735; 84443; 84484; 85025; 85027; 85379; 93005; 96360; 96361; 99222; 99285; J7120

== ENCOUNTER → 2025-08-27 15:14 | Outpatient (BNV) | payer OTHER, SELFPAY | PROVIDERS: Admitting Provider Nurse Practitioner Acute Care; Emergency Provider Emergency Medicine; Visit Provider Internal Medicine Cardiovascular Disease | DX: I51.7 Cardiomegaly (principal); R00.0 Tachycardia, unspecified | CPT/HCPCS: 93010 ==

== ENCOUNTER → 2025-08-27 17:09 | Outpatient (BNV) | payer OTHER, SELFPAY | PROVIDERS: Admitting Provider Nurse Practitioner Acute Care; Emergency Provider Emergency Medicine; Visit Provider Nurse Practitioner Acute Care | DX: R73.9 Hyperglycemia, unspecified (principal) | CPT/HCPCS: 99223 ==

== ENCOUNTER 2025-09-10 11:42 | Emergency (ER) | payer OTHER, SELFPAY ==
--- NOTE | ~2025-09-10 | US_ITS ---
EXAMINATION: US SCROTUM, US SCROTUM WITH DOPPLER COMPLETE HISTORY: Right testicular pain x 1 hour. COMPARISON: There are no prior studies available for comparison. FINDINGS: Real-time grayscale ultrasound imaging of the scrotum was performed. Color and spectral Doppler analysis was also performed. RIGHT TESTICLE: The right testis measures 4.1 x 3.4 x 3.5 cm and demonstrates normal homogeneous echotexture. No masses are seen. The right testis demonstrates normal arterial and venous color Doppler and spectral waveforms. RIGHT EPIDIDYMIS: Normal in size, shape, and vascularity. There is a 5 mm epididymal head cyst. LEFT TESTICLE: The left testis measures 5.7 x 2.5 x 3.9 cm and demonstrates slightly heterogeneous echotexture. No masses are seen. The left testis demonstrates normal arterial and venous color Doppler and spectral waveforms. LEFT EPIDIDYMIS: Normal in size, shape, and vascularity. VARICOCELE: None. HYDROCELE: No significant hydrocele is seen. OTHER COMMENTS: None. US/US scrotum doppler IMPRESSION: 5 mm right epididymal head cyst. Otherwise unremarkable scrotal ultrasound. Electronically signed by: Jasmeet Moon MD 09/10/2025 12:41 PM [facility] [place]
--- NOTE | ~2025-09-10 | US_ITS ---
EXAMINATION: US SCROTUM, US SCROTUM WITH DOPPLER COMPLETE HISTORY: Right testicular pain x 1 hour. COMPARISON: There are no prior studies available for comparison. FINDINGS: Real-time grayscale ultrasound imaging of the scrotum was performed. Color and spectral Doppler analysis was also performed. RIGHT TESTICLE: The right testis measures 4.1 x 3.4 x 3.5 cm and demonstrates normal homogeneous echotexture. No masses are seen. The right testis demonstrates normal arterial and venous color Doppler and spectral waveforms. RIGHT EPIDIDYMIS: Normal in size, shape, and vascularity. There is a 5 mm epididymal head cyst. LEFT TESTICLE: The left testis measures 5.7 x 2.5 x 3.9 cm and demonstrates slightly heterogeneous echotexture. No masses are seen. The left testis demonstrates normal arterial and venous color Doppler and spectral waveforms. LEFT EPIDIDYMIS: Normal in size, shape, and vascularity. VARICOCELE: None. HYDROCELE: No significant hydrocele is seen. OTHER COMMENTS: None. US/US scrotum IMPRESSION: 5 mm right epididymal head cyst. Otherwise unremarkable scrotal ultrasound. Electronically signed by: Jasmeet Moon MD 09/10/2025 12:41 PM [facility] [place]
[2025-09-10 11:50] VITALS: BP 155/83; PULSE 96; RESP 18; TEMP 36.2; O2SAT 96; BMI 27.2
--- NOTE | 2025-09-10 11:50 | ED_ITS ---
HPI - Male Genitourinary General Chief complaint: Urogenital-Male Stated complaint: groin pain? Time Seen by Provider: 09/10/25 12:03 Source: patient Mode of arrival: ambulatory Limitations: no limitations History of Present Illness ED Provider: HPI Narrative: 60-year-old male presenting with a right testicular pain 1 hour prior to arrival, has had no dysuria hematuria fevers or chills no rashes. No trauma Related Data Previous Rx's ?Medication ?Instructions ?Recorded amlodipine 5 mg tablet 5 mg PO DAILY #30 tabs 04/17 blood sugar diagnostic (FreeStyle #100 ea 08/28/25 Lite Strips) blood-glucose meter (FreeStyle #1 ea 08/28/25 Lite Meter kit) lancets 28 gauge (FreeStyle #100 ea 08/28/25 Lancets) metformin 500 mg tablet 500 mg PO BID #60 tabs 08/28 pen needle, diabetic 32 gauge x #100 ea 08/28/25 1/4 Allergies Allergy/AdvReac Type Severity Reaction Status Date / Time No Known Allergies Allergy Verified 09/10/25 11:51 Review of Systems Constitutional: Constitutional: Reports as per [facility] Past Medical History Medical History Hypertension Diabetes mellitus type 2 in nonobese Surgical History No pertinent past surgical history Family History Family History (Updated 08/27/25 @ 17:45 by Tracey Mireles NP) Father Diabetes mellitus type 2 in nonobese Social History Social History Household Members: Significant Other Housing: Apartment Do you presently have visiting nurse or other home services: No Comment: Pt refusing non skid socks Patient Tobacco Use Status: Never used Tobacco Advance Directives: No Advance Directives Information Provided: Yes service: No Physical Exam Exam: Exam: ?General: ??looks age appropriate : Normal-appearing penis and testicles he does have tenderness to the right testicle without palpable masses or there was no discoloration there was no inguinal hernias Skin: Warm, dry, intact, ?Neuro: ?Alert and oriented x3, moving upper and lower extremities symmetrically, no obvious facial asymmetry noted, cranial nerves 2-12 intact Vital Signs: Vital Signs: Last Vital Signs Temp 98.3 F 09/10/25 12:00 Pulse 96 09/10/25 12:00 Resp 18 09/10/25 12:00 BP 147/91 H 09/10/25 12:00 Pulse Ox 97 09/10/25 12:00 O2 Del Method Room Air 09/10/25 12:00 BMI result Body Mass Index 27.2 Course Course Course Narrative: This is a Rapid Medical Exam performed in triage by Homa Kemp PA-C. Full HPI, ROS and PE to be performed by primary ED provider. 60 yo M w/pmhx DM presenting to the ED c/o R testicular pain x 1hr ago. + tender to palpation & hurts more with ambulation. Admits to similar sx in the past. denies dysuria, fever, N/V PE: area not examined in triage Plan: UA, STI testing, Ultrasound Medications Administered Discontinued Medications Generic Name Dose Route Start Last Admin Trade Name Kristopher PRN Reason Stop Dose Admin Acetaminophen 975 mg 09/10/25 12:08 09/10/25 12:17 Acetaminophen 325 Mg Tablet PO 09/10/25 12:09 975 mg ONCE ONE Administration Ketorolac Tromethamine 15 mg 09/10/25 12:08 09/10/25 12:16 Ketorolac Tromethamine 15 Mg/Ml Vial IM 09/10/25 12:09 15 mg ONCE ONE Administration Medical Decision Making Medical Decision Making [facility] Narrative: 12:15 PM 09/10/2025 (Dr. Jensen Mariano): Differential as below, we will obtain ultrasound, there was no evidence for deep space infectious chairs as Britney gangrene necessitating advanced imaging such as CT pelvis with IV contrast or blood work, we will medicate for pain we will obtain ultrasound Differential Diagnosis Differential Diagnoses: The differential diagnosis associated with the presentation includes (Orchitis, testicular mass, cellulitis, hernia, STI, prostatitis, ) Admission/Observation Consideration of admission/observation: Escalation of care including admission/observation considered Lab Data [facility] Lab Attestation statement: I reviewed the patient's lab results. Labs: Lab Results 09/10/25 Range/Units 12:08 Urine Color Yellow Urine Appearance Clear Urine pH 6.0 (5.0-9.0) Ur Specific [place] >= 1.030 H (1.005-1.025) Urine Protein Negative (Neg-Trace) mg/dL Urine Glucose (UA) >=1000 H (Negative) mg/dL Urine Ketones 15 (Negative) mg/dL Urine Blood Negative (Negative) Urine Nitrite Negative (Negative) Ur Leukocyte Esterase Negative (Negative) Urine RBC 0-2 (0-2) /HPF Urine WBC 0-5 (0-5) /HPF Ur Squamous Epith Cells 0-2 (0-2) /HPF Urine Bacteria None Seen (None Seen) Hyaline Casts 0-2 (0-2) /LPF Radiology Impression Discussion of test interpretation with radiology: I have reviewed the radiologist's reading. Radiologist Impression: 5 mm right epididymal head cyst. Otherwise unremarkable scrotal ultrasound. Discharge Plan Discharge Clinical Impression: Pain in right testicle Patient Disposition: Home, Self-Care Additional Instructions: You can use Tylenol 975 mg every 6 hours needed for pain no ibuprofen 400 mg every 6 hours for additional pain control, ultrasound without abnormal blood flow to the testicle, you do have small epididymal cyst which is not a concerning finding, your urinalysis has been reassuring. Follow up with the PCP any other issues concerns come back to the ER Prescriptions: No Action amlodipine 5 mg tablet 5 mg PO DAILY Qty: 30 0RF (DME) FreeStyle Lite Strips Strip Qty: 100 0RF Rx Instructions: Test four times a day or as directed. (DME) blood-glucose meter [FreeStyle Lite Meter] Kit Qty: 1 0RF Rx Instructions: As Directed (DME) pen needle, diabetic 32 gauge x 1/4 needle Qty: 100 0RF Rx Instructions: Use four times a day or as directed. (DME) lancets [FreeStyle Lancets] 28 gauge misc Qty: 100 0RF Rx Instructions: Test four times a day or as directed. metformin 500 mg tablet 500 mg PO BID Qty: 60 0RF Print Language: Bur[place]ian
[2025-09-10 12:00] VITALS: BP 147/91; PULSE 96; RESP 18; TEMP 36.8; O2SAT 97
[2025-09-10 12:19] LABS: Appearance Urine Clear; Glucose Urine UA >=1000 mg/dL (Negative); PH 6.0 (5.0-9.0); Specific Gravity - Urine >= 1.030 (1.005-1.025); UMIC TRIGGER UACC YES
--- NOTE | 2025-09-10 12:20 | PC.NURSE ---
Patient medicated per provider orders. Ultrasound being performed at this time, results/report pending. Care ongoing by this RN. also at bedside.
[2025-09-10 12:56] VITALS: BP 147/91; PULSE 96; RESP 18; TEMP 36.8; O2SAT 97
[2025-09-10 14:00] LABS: CT PCR Urine NOT DETECTED (Not Detect.); NG PCR Urine NOT DETECTED (Not Detect.)
== END 2025-09-10 12:58 | disposition home or self-care (01) ==
PROVIDERS: Physician Assistant; Emergency Provider Emergency Medicine
DX: N50.811 Right testicular pain (principal); I10 Essential (primary) hypertension; E11.9 Type 2 diabetes mellitus without complications
CPT/HCPCS: 76870; 81001; 87491; 87591; 93975; 96372; 99283; 99284; J1885

== ENCOUNTER → 2025-09-10 11:50 | Outpatient (BNV) | payer OTHER, SELFPAY | PROVIDERS: Emergency Provider Emergency Medicine; Visit Provider Radiology Diagnostic Radiology | DX: N50.3 Cyst of epididymis (principal) | CPT/HCPCS: 76870; 93975 ==

== ENCOUNTER 2025-09-29 15:46 | Emergency (ER) | payer OTHER, SELFPAY ==
--- NOTE | ~2025-09-29 | XR_ITS ---
EXAMINATION: XR HAND, RIGHT CLINICAL INFORMATION: pain, swelling to 3rd digit COMPARISON: None available. TECHNIQUE: PA, lateral, and oblique views of the right hand. FINDINGS: The bones and soft tissues are normal. No fracture. Alignment is anatomic. Joint spaces are maintained. No erosions or soft tissue calcifications. XR/XR hand RT min 3V IMPRESSION: Normal right hand. Specifically, the third digit is intact. Electronically signed by: Jamie Lundberg MD 09/29/2025 04:48 PM EST
--- NOTE | 2025-09-29 16:11 | ED_ITS ---
HPI - General Adult General Chief complaint: Skin/Abscess/Foreign Body Stated complaint: right hand 3rd digit wound Time Seen by Provider: 09/29/25 17:26 Source: patient and RN notes reviewed Limitations: no limitations History of Present Illness HPI narrative: 60-year-old male has a history diabetes, hypertension, presents for evaluation of pain and swelling to the right 3rd digit. Patient states symptoms began within the last 2 days. Denies any known trauma. No history of similar. Denies any fevers chills nausea vomiting. No paresthesias or paralysis. He is right-hand dominant. Related Data Previous Rx's ?Medication ?Instructions ?Recorded amlodipine 5 mg tablet 5 mg PO DAILY #30 tabs 04/17 blood sugar diagnostic (FreeStyle #100 ea 08/28/25 Lite Strips) blood-glucose meter (FreeStyle #1 ea 08/28/25 Lite Meter kit) lancets 28 gauge (FreeStyle #100 ea 08/28/25 Lancets) metformin 500 mg tablet 500 mg PO BID #60 tabs 08/28 pen needle, diabetic 32 gauge x #100 ea 08/28/25/ doxycycline monohydrate 100 mg 100 mg PO BID #20 caps 09/29/25 capsule metformin 500 mg tablet 500 mg PO BID #60 tabs 09/29 Allergies Allergy/AdvReac Type Severity Reaction Status Date / Time No Known Allergies Allergy Verified 09/29/25 16:16 Review of Systems 2 Review of Systems: Yes all other systems are reviewed and are negative Musculoskeletal: Comments: Right hand 3rd digit pain Endocrine: Endocrine: Denies heat intolerance, Denies polydipsia and Denies polyuria [facility] Past Medical History Medical History Hypertension Diabetes mellitus type 2 in nonobese Surgical History No pertinent past surgical history Family History Family History (Updated 08/27/25 @ 17:45 by Tracey Mireles NP) Father Diabetes mellitus type 2 in nonobese Social History Social History Household Members: Significant Other Housing: Apartment Do you presently have visiting nurse or other home services: No Comment: Pt refusing non skid socks Patient Tobacco Use Status: Never used Tobacco Advance Directives: No Advance Directives Information Provided: Yes service: No Physical Exam ED Vital Signs: Vital Signs - 24 hr 09/29/25 16:12 Temperature 98 F Pulse Rate 89 Respiratory Rate 16 Blood Pressure 169/93 H Pulse Oximetry 97 Oxygen Delivery Method Room Air BMI result Body Mass Index 27.4 Const General: alert and awake Extrem 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 Full range of motion of all digits. Radial pulses are +2 and equal bilaterally. There is erythema and edema surrounding the right, 3rd digit, dorsal aspect along the cuticle edge. There is mild fluctuance. No induration or streaking. Abduction and adduction intact. No evidence of tenosynovitis Course Course Course Narrative: Rapid medical examination performed in triage by Marlen Tillman PA-C: Patient is a 60 year old male presenting to the emergency department with right 3rd digit swelling. Patient states that over the last 3 days he has had right 3rd digit swelling and pain. Patient states that he is concerned because he is a diabetic. Detailed physical exam and review of systems are deferred to the dieing out machine operator. Labs and imaging ordered. Patient placed back in the waiting room pending room availability and results. Reevaluation(s) Reevaluation #1: Repeat glucose 293. Patient would like to be discharged home and does not wish to wait any longer. He feels comfortable with discharge plan home. No further questions at this time. Medications Administered Discontinued Medications Generic Name Dose Route Start Last Admin Trade Name Freq PRN Reason Stop Dose Admin Insulin Human Lispro 10 unit 09/29/25 17:41 09/29/25 18:02 Insulin Lispro 100 Unit/Ml 3 Ml Vial SUBCUT 09/29/25 17:42 10 unit ONCE ONE Administration Protocol Procedures Abscess I/D Site: hand (right 3rd digit) Side (if applicable): right Complications: other (#11 Blade used at the cuticle edge, moderate amount of purulent material expressed. Firm pressure expresses additional material. Cleansed and bandaged.) Medical Decision Making Medical Decision Making MDM Narrative: 60-year-old male who has a history of hypertension and diabetes, redness pain and swelling to the right 3rd digit consistent with paronychia. Patient tolerated I and D without immediate complication. X-rays unremarkable for any evidence of osteomyelitis. Labs demonstrate hyperglycemia. Given the elevation of his glucose, we will provide dose of insulin and reassess. No evidence of DKA. Patient confirms he has insulin testing supplies at home as well as metformin however he is running low on his metformin. Differential Diagnosis Differential Diagnoses: The differential diagnosis associated with the presentation includes Admission/Observation Consideration of admission/observation: Escalation of care including admission/observation considered Lab Data MDM Lab Attestation statement: I reviewed the patient's lab results. 09/29/25 16:28 09/29/25 16:28 Labs: Lab Results 09/29/25 09/29/25 Range/Units 16:28 18:46 WBC 9.0 (4.8-10.8) X10*3/uL RBC 5.33 (4.60-5.80) X10*6/uL Hgb 15.5 (14.0-18.0) g/dl Hct 45.3 (42.0-52.0) % MCV 85.0 (80.0-98.0) fL MCH 29.1 (27.0-33.0) pg MCHC 34.2 (31.0-36.0) g/dl RDW 12.7 (11.0-16.0) % Plt Count 220 (160-400) X10*3/uL MPV 11.3 (9.4-12.4) fL Immature Gran % (Auto) 0.3 (0.0-0.4) % Neut % (Auto) 68.6 (45-73) % Lymph % (Auto) 24.1 (20-40) % [place]win % (Auto) 5.8 (2-11) % Eos % (Auto) 0.8 (0-4) % Baso % (Auto) 0.4 (0-2) % Lymph # (Auto) 2.2 (1.2-4.9) X10*3/uL [place] # (Auto) 0.5 (0.1-1.2) X10*3/uL Eos # (Auto) 0.1 (0.0-0.4) X10*3/uL Baso # (Auto) 0.0 (0.0-0.2) X10*3/uL Abs Immat Gran (auto) 0.03 (0.00-0.03) X10*3/uL Absolute Neuts (auto) 6.2 (2.0-8.3) x10*3/uL Absolute Nucleated RBC 0.000 (0.0-0.012) X10*3/uL Nucleated RBC % (auto) 0.0 (0.0-0.2) /100WBC ESR 28 H (1-20) MM/HR Sodium 135 (135-145) mmol/L Potassium 4.6 (3.3-5.1) mmol/L Chloride 102 (96-108) mmol/L Carbon Dioxide 26 (22-29) mmol/L Anion Gap 12 (12-20) BUN 12 (9-16) mg/dL Creatinine 1.20 (0.5-1.4) mg/dL Estim Creat Clear Calc 71.4 Estimated GFR > 60 POC Glucose 293 H (60-115) mg/dL Random Glucose 367 H* (60-115) mg/dL Calcium 9.5 D (8.4-10.2) mg/dL Total Bilirubin 0.3 (0.0-1.0) mg/dL AST 22 (5-37) U/L ALT 28 (0-40) U/L Alkaline Phosphatase 237 H (39-117) U/L C-Reactive Protein 0.87 H (< or = 0.50) mg/dL Total Protein 8.3 H (6.5-8.0) g/dL Albumin 4.6 (3.5-5.0) g/dL Prescription Management I considered prescription management with: Antibiotic Chronic Conditions Patient?s care impacted by: Diabetes and Hypertension Discharge Plan Discharge Clinical Impression: Hyperglycemia, Paronychia of finger of right hand Patient Disposition: Home, Self-Care Instructions: Paronychia (ED), Diabetic Hyperglycemia (ED) Additional Instructions: Continue warm water and Betadine soaks, twice daily. Change the dressing as it becomes saturated. Keep your hands clean and dry. Use antibacterial soap. You may use antibacterial ointment such as Neosporin or bacitracin. Doxycycline as directed. Finish all antibiotics. Continue metformin as directed. Closely monitor your glucose levels. Watch for increased redness, severe pain, swelling streaking or any other concern return immediately to the emergency department. Follow-up with your primary care provider. Call this week to schedule a follow- up appointment. Return to the emergency department if you have any worsening of symptoms, or any concerns. Get well soon! Prescriptions: New doxycycline monohydrate 100 mg capsule 100 mg PO BID Qty: 20 0RF metformin 500 mg tablet 500 mg PO BID Qty: 60 0RF No Action amlodipine 5 mg tablet 5 mg PO DAILY Qty: 30 0RF (DME) FreeStyle Lite Strips Strip Qty: 100 0RF Rx Instructions: Test four times a day or as directed. (DME) blood-glucose meter [FreeStyle Lite Meter] Kit Qty: 1 0RF Rx Instructions: As Directed (DME) pen needle, diabetic 32 gauge x 1/4 needle Qty: 100 0RF Rx Instructions: Use four times a day or as directed. (DME) lancets [FreeStyle Lancets] 28 gauge misc Qty: 100 0RF Rx Instructions: Test four times a day or as directed. metformin 500 mg tablet 500 mg PO BID Qty: 60 0RF Print Language: Polish
[2025-09-29 16:12] VITALS: BP 169/93; PULSE 89; RESP 16; TEMP 36.6; O2SAT 97; BMI 27.4
[2025-09-29 17:01] LABS: MANUAL DIFF FLAG NO
[2025-09-29 17:02] LABS: Hematocrit 45.3 % (42.0-52.0); Hemoglobin 15.5 g/dl (14.0-18.0); Imm Gran Abs Auto 0.03 X10*3/uL (0.00-0.03); Imm Gran Pct Auto 0.3 % (0.0-0.4); Lymphocytes Absolute Auto 2.2 X10*3/uL (1.2-4.9); Mean Corpuscular HGB Conc 34.2 g/dl (31.0-36.0); Mean Corpuscular Hemoglobin 29.1 pg (27.0-33.0); Mean Corpuscular Volume 85.0 fL (80.0-98.0); NRBC Abs Auto 0.000 X10*3/uL (0.0-0.012); NRBC Pct Auto 0.0 /100WBC (0.0-0.2); Platelet Count 220 X10*3/uL (160-400); Red Blood Count 5.33 X10*6/uL (4.60-5.80); White Blood Count 9.0 X10*3/uL (4.8-10.8)
[2025-09-29 17:25] LABS: Alanine Aminotransferase 28 U/L (0-40); Albumin Level 4.6 g/dL (3.5-5.0); Alkaline Phosphatase 237 U/L (39-117); Anion Gap 12 (12-20); Aspartate Amino Transferase 22 U/L (5-37); Blood Urea Nitrogen 12 mg/dL (9-16); Calcium 9.5 mg/dL (8.4-10.2); Carbon Dioxide 26 mmol/L (22-29); Chloride 102 mmol/L (96-108); Creatinine Clr Calc Pharmacy 71.4; Estimated Glomerular Filt Rate > 60; Potassium 4.6 mmol/L (3.3-5.1); Sodium 135 mmol/L (135-145); Total Protein 8.3 g/dL (6.5-8.0)
--- NOTE | 2025-09-29 18:34 | PC.NURSE ---
pt is in a PIT chair, the provider I+D his finger. He was medicated for hyperglycemia
[2025-09-29 18:50] LABS: Glucose, Whole Blood 293 mg/dL (60-115)
== END 2025-09-29 19:01 | disposition home or self-care (01) ==
PROVIDERS: Physician Assistant Medical; Emergency Provider Emergency Medicine
DX: L03.011 Cellulitis of right finger (principal); E11.65 Type 2 diabetes mellitus with hyperglycemia; M79.644 Pain in right finger(s); I10 Essential (primary) hypertension
CPT/HCPCS: 10060; 36415; 73130; 80053; 82947; 85025; 85652; 86140; 99282; 99283

== ENCOUNTER → 2025-09-29 16:12 | Outpatient (BNV) | payer OTHER, SELFPAY | PROVIDERS: Visit Provider Radiology Diagnostic Radiology | DX: M79.641 Pain in right hand (principal); M79.89 Other specified soft tissue disorders | CPT/HCPCS: 73130 ==